=== PATIENT | female | born 1945 | race Caucasian/White ===

== ENCOUNTER → 2017-01-05 | Outpatient (CLI) | payer BC ==
[~2017-01-05] MED LIST: LISI-461 PO; LSN5 PO; PRLSR20 PO; ROSU5TAB PO
--- NOTE | 2017-01-05 15:35 | MAMMOGRAPHY REPORT ---
BILATERAL DIGITAL SCREENING MAMMOGRAM WITH CAD: 01/05/2017 CLINICAL HISTORY: Routine screening examination. TECHNIQUE: Bilateral CC and MLO views were obtained. Current study was also evaluated with a Compute r Aided Detection (CAD) system. COMPARISON: Comparison is made to exams dated: 06/04/2015 mammogram, 06/01/2014 mammogram, 03/30/2013 mammogram, 03/29/2012 mammogram, 03/24/2011 mammogram, and 03/20/2010 mammogram - [facility]. BREAST COMPOSITION: There are scattered areas of fibroglandular density in both breasts. FINDINGS: There are scattered stable benign calcifications in both breasts. No suspicious mass, arc hitectural distortion or cluster of microcalcifications is seen. IMPRESSION: ACR BI-RADS CATEGORY 2: BENIGN There is no mammographic evidence of malignancy. A 1 year screening mammogram is recommended. The pa tient will receive written notification of the results. Approximately 10% of breast cancers are not detected with mammography. A negative mammographic report should not delay biopsy if a clinically suggestive mass is present. Lesa Ozuna M.D. ay/:01/05/2017 15:06:51 [employer]: Hoa NIETO(R)(M)(BD), [facility] letter sent: Normal 1/2 BI-RADS Code: ACR BI-RADS Category 2: Benign
== END | disposition home or self-care (01) ==
LOC: C.MAMM 13:06
PROVIDERS: ATTEND Physician Assistant
DX: Z12.31 Encounter for screening mammogram for malignant neoplasm of breast (principal)

== ENCOUNTER 2024-08-01 09:44 | Observation (INO) ==
--- NOTE | 2024-07-01 15:35 | PAT Medication Instructions ---
Medication Instructions Date of Service July 01, 2024 Home Medications alendronate 70 mg tablet 70 mg PO WK atorvastatin 10 mg tablet 10 mg PO QAM calcium carbonate (Calcium 600) 600 mg PO QAM cholecalciferol (vitamin D3) 25 mcg (1,000 unit) capsule (Vitamin D3) 25 mcg PO QAM famotidine 20 mg tablet 20 mg PO HS gabapentin 300 mg capsule 300 mg PO BID lisinopril 40 mg tablet 40 mg PO QAM metoprolol tartrate 50 mg tablet 50 mg PO QAM omega-3 fatty acids 1,000 mg PO QAM omeprazole 20 mg capsule,delayed release 20 mg PO QAM sertraline 100 mg tablet 100 mg PO HS MEDICATION INSTRUCTIONS: Continue as directed alendronate 70 mg tablet 70 mg PO WK STOP taking 2 weeks before surgery omega-3 fatty acids 1,000 mg PO QAM DO NOT take the morning of surgery lisinopril 40 mg tablet 40 mg PO QAM calcium carbonate (Calcium 600) 600 mg PO QAM cholecalciferol (vitamin D3) 25 mcg (1,000 unit) capsule (Vitamin D3) 25 mcg PO QAM Take morning of surgery With a small sip of water, OTHERWISE NOTHING TO EAT OR DRINK AFTER MIDNIGHT: metoprolol tartrate 50 mg tablet 50 mg PO QAM atorvastatin 10 mg tablet 10 mg PO QAM gabapentin 300 mg capsule 300 mg PO BID omeprazole 20 mg capsule,delayed release 20 mg PO QAM Take evening before surgery famotidine 20 mg tablet 20 mg PO HS sertraline 100 mg tablet 100 mg PO HS gabapentin 300 mg capsule 300 mg PO BID Other Notes If you have any questions please call us at [phone] or [phone] or [phone] or [phone]
--- NOTE | 2024-07-21 13:06 | Anesthesiology Consultation ---
Date of Service July 21, 2024 Assessment & Plan (1) Encounter for pre-operative examination: - PCP office note 07/06/24 [facility]: "...right total knee replacement...ongoing neck discomfort...small red patch left axilla for at least several weeks...no [sic] overly painful or itchy...clotrimazole 1% external cream..." Surgeon's office made aware. - Outpatient joint assessment: Patient is currently scheduled for inpatient pathway. If re-evaluated and patient/surgeon requests outpatient pathway, patient is not a candidate for outpatient joint program. Chart Review Chart Review: Acceptable Risk for Surgery and Patient seen in Pre Admission Testing Teaching & Discussion Pre-Anesthesia Teaching/Discussion Notes: Instructed NPO after midnight before surgery, except medications with 15 cc of water. Medication instructions provided according to the PAT guidelines. History Surgery Operation Date: 08/01/24 09:15 Proposed Procedures p Right Total Knee Arthroplasty - Tony Wilson, Height/Weight Height: 5 ft 1 in Weight: 80.4 kg Allergies Allergy/AdvReac Type Severity Reaction Status Date / Time iodine Allergy Mild Rash Verified 07/01/24 13:19 Medications Home Medications Medication Instructions Recorded Confirmed Last Taken alendronate 70 mg tablet 70 mg PO WK 02/27/23 07/01/24 03/17/23 atorvastatin 10 mg tablet 10 mg PO QAM 02/27/23 07/01/24 03/23/23 04:45 calcium carbonate (Calcium 600) 600 mg PO QAM 02/27/23 07/01/24 03/22/23 08:00 cholecalciferol (vitamin D3) 25 25 mcg PO QAM 02/27/23 07/01/24 03/22/23 08:00 mcg (1,000 unit) capsule (Vitamin D3) famotidine 20 mg tablet 20 mg PO HS 02/27/23 07/01/24 03/22/23 21:30 gabapentin 300 mg capsule 300 mg PO BID 02/27/23 07/01/24 03/23/23 04:45 lisinopril 40 mg tablet 40 mg PO QAM 02/27/23 07/01/24 03/22/23 08:00 metoprolol tartrate 50 mg tablet 50 mg PO QAM 02/27/23 07/01/24 03/23/23 04:45 omega-3 fatty acids 1,000 mg PO QAM 02/27/23 07/01/24 03/16/23 omeprazole 20 mg capsule,delayed 20 mg PO QAM 02/27/23 07/01/24 03/22/23 08:00 release sertraline 100 mg tablet 100 mg PO HS 02/27/23 07/01/24 03/22/23 08:00 Past Medical History Medical History (Updated 07/21/24 @ 13:12 by Marci Ureña PA-C) Depression with anxiety GERD (gastroesophageal reflux disease) controlled, stable per pt Hyperlipidemia Hypertension controlled, stable per pt Osteoarthritis Patient denies h/o stroke, seizures, heart attack, heart failure, DM, blood clots/DVTs or blood transfusions. 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 Patient denies chest pain, fever, chills, cough, wheezing, or palpitations. Physical Exam Vital Signs Vitals BP 125/76 P 66 TEMP 98.0 SP02 94% on RA RESP 19 Physical Patient resting comfortably in chair in no acute distress, alert and oriented, responding appropriately throughout visit Full cervical extension range of motion without pain TMD 3.5 finger breadths Mallampati Score 2 Dentition: intact, denies chipped or loose teeth, caps/crowns, implants or bridges Lungs: normal respiratory effort. Good air movement, clear throughout to auscultation, no adventitious breath sounds Cardiac: regular rate and rhythm, no murmurs noted Carotid arteries: negative bruit bilat Lab Results Anesthesia Preop Results Results Anesthesia Widget: PT 10.9 Seconds (9.0-12.0) 07/21/24 PTT 26 Seconds (21-31) 07/21/24 INR 1.0 (0.9-1.1) 07/21/24 Blood Type AB Positive 07/21/24 Antibody Screen NEGATIVE 07/21/24 Testing Laboratory Results 07/19/24 WBC: 6.3 H/H: 14/44 PLATELETS: 291,000 SODIUM: 142 POTASSIUM: 4.6 CHLORIDE: 104 CO2: 29 BUN: 12 CREATININE: 0.8 GLUCOSE: 92 Electrocardiogram Date: 07/21/24 NSR, rate 62 bpm Chest X-Ray Date: 07/21/24 1. No active cardiopulmonary disease. 2. No gross interval change seen when compared to prior imaging. Echocardiogram Date: 08/26/22 EF 55-59% No LV segmental wall motion abnormalities No significant valvular disease Stress Test Date: 07/14/22 Possible small area of mild reversible ischemia of the distal anterior wall Small area of mild intensity partly reversible perfusion defect of the distal to mid anterior wall and fixed defect of the apex EF 62% No significant CAD on subsequent cath Cardiac Catheterization Date: 08/26/22 Left main: no noted disease LAD: not diseased Cx: no evidence of disease RCA: no evidence of disease
[~2024-08-01 09:44] MED LIST changes: +BUPIVACAINE 0.5 % 5 MG/1 ML PF 10ML VIAL ONE; +DEXAMETHASONE SOD INJ 4 MG/ML VIAL ONE; +GLYCOPYRROLATE 0.2 MG/ML VIAL ONE; +LIDOCAINE 2% 2 ML VIAL/AMP(20MG/ML) INFIL ONE; -LISI-461 PO; -LSN5 PO; +MIDAZOLAM HCL 1 MG/ML 2ML VIAL ONE; +ONDANSETRON INJ 2 MG/ML 2 ML VIAL ONE; -PRLSR20 PO; +PROPOFOL IV EMULSION 10 MG/ML 20 ML VIAL IV ONE; +ROPIVACAINE 0.5% 5 MG/ML 30 ML VIAL ONE; -ROSU5TAB PO; +fentaNYL citrate PF 100 MCG/2 ML VIAL ONE
[2024-08-01] MEDS: ACETAMINOPHEN 500 MG TAB PO SCH (10:28)
[2024-08-01] MEDS: dexAMETHasone**PF** 10 MG/ML VIAL IV SCH (10:28)
[2024-08-01] MEDS: GABAPENTIN 300 MG CAP PO SCH ×2 (10:28→20:31)
[2024-08-01] MEDS: FAMOTIDINE 20 MG TAB PO SCH ×2 (10:28→20:34)
[2024-08-01] MEDS: LR 500ML BOLUS, THEN 15ML/HR IV SCH (10:29)
[2024-08-01] MEDS ORDERED: PROMETHAZINE HCL 6.25 MG in SODIUM CHLORIDE 0.9% 50 ML IV PRN (11:23)
[2024-08-01] MEDS ORDERED: HYDROmorphone INJ 1 MG/ML SYRINGE IV PRN (11:23)
[2024-08-01] MEDS ORDERED: ePHEDrine sulfate 50 MG/ML AMP IV PRN (11:23)
[2024-08-01] MEDS ORDERED: ATROPINE SULFATE 0.1 MG/ML 10ML SYR IV PRN (11:23)
--- NOTE | 2024-08-01 11:31 | History & Physical Bridge Note ---
Date of Service August 01, 2024 History & Physical Bridge Note I have examined the patient, reviewed the History & Physical and in the interval since the performance of the History & Physical I have noted the following changes of clinical significance: no changes noted
[2024-08-01] MEDS: TRANEXAMIC ACID 1,000 MG **IV Pre-op IV SCH (12:14)
[2024-08-01] MEDS: LR 60ML/HR IV SCH (12:30)
[2024-08-01] MEDS: ceFAZolin 2000MG 2,000 MG/15 ML SYR IV SCH ×2 (12:32→20:30)
[2024-08-01] MEDS: ORTHO JOINT ANESTHETIC ONE (13:06)
[2024-08-01] MEDS: ROPIV 0.5% 246mg, Ketorolac 30mg, EPINEPHrine 0.5mg in NSS INFIL SCH (13:06)
[2024-08-01] MEDS: TRANEXAMIC ACID 1,000 MG **IV Intra-op IV SCH (13:36)
--- NOTE | 2024-08-01 13:38 | Operative Report ---
PG Post Operative Report Pre & Post Diagnosis Operation Date: 08/01/24 12:00 Pre-Op Diagnosis: Right Knee Arthritis Post-Op Diagnosis: Right Knee Arthritis I identified the patient and participated in the time-out.: Yes Procedure Operation Date: 08/01/24 12:00 Actual Procedures p Right Total Knee Arthroplasty(Right) - Tony Wilson DO Surgeon Tony Wilson DO Treatment Counselor Nasir Alvarez PA-C Estimated Blood Loss 50 Findings Consistent with Post-Op Diagnosis Specimens Right femoral and tibial bone Description of Procedure Implants used: I used a Darrell Persona total knee arthroplasty system with a size 5 narrow CR femur, D tibia, 28 oval patella, and a size 16 medial congruent polyethylene bearing. All components were cemented in place with Biomet cement. Sachi arrived [facility] for the above procedure. She was seen in the preoperative holding area and the operative extremity was identified and signed. She was given a preoperative antibiotic, TXA, a spinal anesthetic and an adductor nerve block. She was taken back to the operating room and laid on the table in supine position. She was given basic sedation. The operative knee was then prepped and draped in sterile fashion. A timeout was done, and the patient and the operative extremity was properly identified. A midline incision was made directly over the patella. Dissection was taken down to the extensor mechanism. A medial parapatellar arthrotomy was used. The medial retinaculum was released and the fat pad was mostly excised. The knee was flexed and the ACL, PCL, and meniscus were removed. A drill was sent down the center of the femoral canal followed by an intramedullary flaco. Off that flaco a distal femoral cutting block was placed. 9 mm was resected off the distal femur at 5 of valgus. A posterior referencing AP sizing guide was then placed on the distal femur. The femur measured to be a size 5. 2 drill holes were placed in 3 of external rotation. A 4-in-1 cutting block was then impacted into place. Anterior, posterior, and chamfer cuts were then made. The proximal tibia was then exposed. An external tibial alignment guide was placed. A tibial cut guide was then anchored in place and the proximal tibia was then resected. The posterior aspect of the knee was then opened up and any additional meniscus fragments and osteophytes were removed. The tibia measured to be a size D. The tibial plate was then placed in the appropriate rotation and the tibia was drilled and punched. Trial components were then placed. I used a size 16 medial congruent polyethylene insert. The knee was brought through a full range of motion and felt to be stable. The peg holes for the femoral component were then drilled. The patella was then everted and 9 mm was resected off the posterior aspect of the patella. The patella measured to be a size 28 oval. 3 peg holes were then drilled. A trial patella was placed. The knee was once again brought through a full range of motion and felt to be stable. Trial components were then removed. The surrounding soft tissues were injected with 100 cc of an orthopedic pain control cocktail. All components were then cemented into place with Biomet cement. The final polyethylene insert was then snapped into place. Once cement was dry the tourniquet was deflated. Hemostasis was obtained. A dilute betadyne lavage was then done for 3 minutes. The joint was then irrigated with normal saline solution. The medial parapatellar arthrotomy was then closed with #1 Vicryl suture. The skin was closed with 2-0 Vicryl, 3-0V lock suture, and jesse. A soft compressive dressing was placed. She was then transferred to a hospital bed and taken to the postanesthesia care unit in stable condition. She tolerated the procedure well. Nasir Alvarez PA-C, was present for the entire procedure. He was critical for patient positioning, prepping, draping, retraction exposure, wound closure and application of sterile dressing. I attest to the content of the Intraoperative Record and any orders documented therein. Any exceptions are noted below.
--- NOTE | 2024-08-01 14:35 | XRay Report ---
XR knee RT 1 or 2V routine CLINICAL HISTORY: Surgical Post Op COMPARISON: None FINDINGS: Right knee prosthesis shows no hardware complication. There is expected soft tissue gas. S kin jesse are present. IMPRESSION: Unremarkable postoperative exam. ACT 112: Negative or not required by law. Electronically signed by: Sanchez Roach M.D. 08/01/2024 2:33 PM
--- NOTE | 2024-08-01 15:06 | Anesthesiology Progress Note ---
Date of Service August 01, 2024 Anesthesia Post Procedure Vital Signs Vital Signs: Temp Pulse Pulse Resp BP Pulse Ox O2 Del Method 08/01/24 15:00 80 16 148/69 H 92 Room Air 08/01/24 14:45 76 14 149/69 H 95 Room Air 08/01/24 14:35 36 C L 88 18 150/73 H 95 Room Air 08/01/24 14:25 83 16 148/73 H 95 Nasal Cannula 08/01/24 14:15 89 18 96/71 L 100 Oxymask 08/01/24 14:05 36.2 C L 91 H 12 141/67 H 97 Oxymask 08/01/24 10:05 36.5 C 75 18 179/99 H 98 Room Air O2 Flow Rate 08/01/24 15:00 08/01/24 14:45 08/01/24 14:35 08/01/24 14:25 3 08/01/24 14:15 4 08/01/24 14:05 6 08/01/24 10:05 Transfer of Care Handoff Completed per policy Notes Mental Status: alert / awake / arousable and participated in evaluation Nausea / Vomiting: adequately controlled Pain: adequately controlled Airway Patency, RR, SpO2: stable & adequate BP & HR: stable & adequate Hydration State: stable & adequate Anesthetic Complications: no major complications apparent and Pt Satisfied with anesthetic care
[2024-08-01] MEDS ORDERED: METOCLOPRAMIDE HCL INJ 5 MG/ML 2 ML VIAL IV PRN (16:42)
[2024-08-01] MEDS ORDERED: oxyCODONE HCL IR 5 MG TAB (IMMEDIATE RELEASE) PO PRN (16:42)
[2024-08-01] MEDS ORDERED: NALOXONE HCL 0.4 MG/1 ML VIAL/CARP IV PRN (16:42)
[2024-08-01] MEDS ORDERED: bisacodyL 10 MG SUPP PR PRN (16:42)
[2024-08-01] MEDS ORDERED: HYDROmorphone INJ 0.5 MG/0.5 ML SYR IV PRN (16:42)
[2024-08-01] MEDS ORDERED: ONDANSETRON INJ 2 MG/ML 2 ML VIAL IV PRN (16:42)
[2024-08-01] MEDS ORDERED: MAGNESIUM HYDROXIDE SUSP 30 ML UDC PO PRN (16:42)
[2024-08-01] MEDS: KETOROLAC TROMETHAMINE 15 MG/ML VIAL IV SCH (17:19)
[2024-08-01] MEDS: ASPIRIN 81 MG ECTAB PO SCH (20:31)
[2024-08-01] MEDS: SERTRALINE HCL 100 MG TABLET PO SCH (20:32)
[2024-08-01] MEDS: DOCUSATE SODIUM 100 MG CAP PO SCH (20:34)
[2024-08-01] MEDS: SENNA 8.6 MG TAB PO SCH (20:34)
[2024-08-01] MEDS: ACETAMINOPHEN 500 MG TAB PO PRN (22:29)
[2024-08-02] MEDS: ALENDRONATE SODIUM 70 MG TAB PO SCH (05:56)
[2024-08-02 07:25] VITALS: BP 145/77; PULSE 76; RESP 20; TEMP 98.2; O2SAT 95
[2024-08-02] MEDS: MULTIVITAMIN TAB PO SCH (07:45)
[2024-08-02] MEDS: METOPROLOL TARTRATE 50 MG TAB PO SCH (07:45)
[2024-08-02] MEDS: PANTOprazole 40 MG TAB PO SCH (07:45)
[2024-08-02] MEDS: lisinopril 40 MG TAB PO SCH (07:45)
[2024-08-02] MEDS: dexAMETHasone 4 MG TAB PO SCH (07:46)
[2024-08-02] MEDS: ATORVASTATIN 10 MG TAB PO SCH (07:46)
--- NOTE | 2024-08-02 09:10 | Orthopedic Progress Note ---
Date of Service August 02, 2024 Assessment & Plan (1) Status post right knee replacement: (2) Aftercare following right knee joint replacement surgery: Plan 79-year-old woman POD# 1 s/p right total knee replacement, doing well overall. Pain is well-controlled. Medically stable. Postop x-rays well-appearing. She is neurologically intact. Plan: 1. DVT prophylaxis w/ TEDs, SCDs, ASA 81 mg BID. 2. PT/OT as tolerated. WBAT on the R LE. Encourage heel slides, SLR, full knee extension w/ quad sets. 3. Pain control doing well with current pain regimen; has Rx for outpatient pain control. 4. Dressing change by nursing after PT/OT, prior to discharge. 5. Disposition - plan to D/C home w/ home health PT later today once cleared by PT/OT. 6. F/u 2 weeks post-op w/ orthopedics (Dr. Wilson's team), or as previously scheduled, for first post-op visit. Subjective Patient is POD# 1 s/p right total knee arthroplasty by Dr. Wilson on 08/01/2024. Patient says her pain is relatively well-controlled this morning. Denies CP, SOB, N/V, or LE paresthesia. She has home health care PT arranged to come to the house for therapy for 2 weeks, then will transition to [facility] near her house after that. Patient says that she will be ready to go home today. Review of Systems All systems reviewed & are unremarkable except as noted in HPI & below. Physical Exam GENERAL: AA&Ox3, NAD. Pleasant, affect is calm. Sitting upright in bed and appears comfortable. RESPIRATORY: Normal respiratory effort with no signs of distress. CHEST/AXILLA: Chest movement symmetrical. No deformities noted. CARDIOVASCULAR: No edema noted. SKIN: [place], warm and dry. MS/EXTREMITY: Knee dressing & TRINI wrap c/d/i. SIRENA hose donned to contralateral LE. + ankle dorsi/plantarflexion. NVI distally. Calf soft/NT. PT/DP pulses intact, 2+. Able to SLR without assistance. Results & Data Results & Data Laboratory Results . Diagnostic Findings . Knee X-Ray 08/01/24 13:41 XR knee RT 1 or 2V routine CLINICAL HISTORY: Surgical Post Op COMPARISON: None FINDINGS: Right knee prosthesis shows no hardware complication. There is expected soft tissue gas. Skin jesse are present. IMPRESSION: Unremarkable postoperative exam. ACT 112: Negative or not required by law. Electronically signed by: Sanchez Roach M.D. 08/01/2024 2:33 PM PG Care Time/CCT Total # of Minutes Spent Total Time Spent with Patient: Total time spent is greater than 50% in coordination of care (as documented) at patient's floor/unit and/or counseling patient: [place] [address] Post Operative Follow-Up Patient Type Established Medical Decision Making Straight Forward Diagnoses Status post right knee replacement Z96.651 Aftercare following right knee joint replacement surgery Z47.1; Z96.651
--- NOTE | 2024-08-02 15:22 | Discharge Summary ---
Date of Service August 02, 2024 Admission HPI (Per Admitting) Jennifer is a pleasant 79-year-old female who has been dealing with chronic increasing right knee pain. X-rays and clinical exam have been diagnostic for advanced arthritis of the right knee. She has had multiple injections. Unfortunately, the injections are no longer helping. She presents to the office today for evaluation. We discussed diagnosis and treatment options again in the office today. She would like to proceed with a right total knee arthroplasty. I went over her medical history with her in detail. She is not a diabetic. She is not on any anticoagulants. She has no history of blood clots. She has no metal allergies. After reviewing her medical history with her in detail, I feel it is safe to proceed with surgery. She understands the risks, benefits, and alternatives of this procedure. I will see her back in the office 2 weeks postoperatively. Admission Exam (Per Admitting) Appearance:This is a well-developed, well-nourished female in no apparent distress.Musculoskeletal:Physical exam of the right knee shows a varus deformity. Tenderness to palpation over the distal medial femoral condyle and over the medial joint line. Principal Diagnosis Same as "Discharge Diagnosis" noted below under Discharge Instructions. Discharge Exam GENERAL: AA&Ox3, NAD. Pleasant, affect is calm. Sitting upright in bed and appears comfortable. RESPIRATORY: Normal respiratory effort with no signs of distress. CHEST/AXILLA: Chest movement symmetrical. No deformities noted. CARDIOVASCULAR: No edema noted. SKIN: [place], warm and dry. MS/EXTREMITY: Knee dressing & TRINI wrap c/d/i. SIRENA hose donned to contralateral LE. + ankle dorsi/plantarflexion. NVI distally. Calf soft/NT. PT/DP pulses intact, 2+. Able to SLR without assistance. Discharge Data Procedures Performed Operation Date: 08/01/24 12:00 Actual Procedures p Right Total Knee Arthroplasty(Right) - Tony Wilson DO Ordered Studies 08/01/24 05:00 US - OR guided needle placemen Routine Hospital Course (1) Status post right knee replacement: (2) Aftercare following right knee joint replacement surgery: Plan On August 01, 2024 Sachi arrived at [facility] operating room and underwent a right total knee replacement without complications. Patient had an adductor canal block and spinal anesthetic for the procedure. Postoperatively, patient was transferred to the general orthopedic floor in stable condition and eventually started onto aspirin 81 mg twice daily for DVT prophylaxis as appropriate. Patient's hospital course was uneventful. On postoperative day #1, patient's vital signs were stable and pain was well- controlled. Patient was able to participate well with physical therapy, safely performing the necessary ambulation and range of motion exercises and properly demonstrating ADL tasks. Patient was then discharged home in stable condition, with home health care services to begin. Patient will follow-up with orthopedics in 2 to 3 weeks for postoperative care. PG Care Time/CCT Total # of Minutes Spent Total Time Spent with Patient: Total time spent is greater than 50% in coordination of care (as documented) at patient's floor/unit and/or counseling patient: Discharge Plan Discharge Items Patient Disposition: Home - Home Health Services Reason For Visit: Right Knee Arthritis Discharge Diagnosis: Right knee replacement Activity: Per Instructions section Non-emergency contact: Surgeon Call non-emergency contact if: your pain is worsening, your temperature is above 101, your wound has increased redness and your wound has increased drainage Follow-up/Referrals: Segundo White PA-C [Physician [employer] Attendant] - (08/17/24 @ 09:30) Elio Patrick PA-C [Primary Care Provider] - Diet: Regular Addtl Attending Provider Instructions: Activity and Therapy Recommendations: * If you are using [facility] then therapy will be provided at your home until they feel you have accomplished all of your goals. * If you are using [facility] then Physical Therapy will be provided until they feel you are ready to start Outpatient Physical Therapy. * If you are not using home therapy then Outpatient Physical Therapy should start about 3-5 days from your day of surgery. Therapy will last about 6-10 weeks * It is important not to put a pillow under your knee when you are relaxing or sleeping. It is just as important to make sure you are getting your knee perfectly straight as it is to regain your knee bend. * You were shown a series of exercises in the hospital. Do these exercises three times each day including the exercises you were shown in physical therapy. * Get up and walk several times each day. For the first four weeks, try not to stand or walk for more than one hour at a time. If you do stand or walk for more than one hour, you will not hurt anything, but your leg will likely swell. * As you feel comfortable, you may change from the walker or crutches to a cane and then to independent walking. Medications: * Narcotic You will likely be sent home from the hospital with a prescription for the narcotic pain medication that worked best throughout your stay. * Cefadroxil -take the antibiotic twice a day for 10 days to help prevent infection. * Aspirin Most patients will be required to take Aspirin 81mg twice a day for 6 weeks after surgery. This is obtained [id number] and a prescription is not necessary. * Other medications may be prescribed for specific circumstances. If you have any questions, please call the office at . * Resume previous home medications unless otherwise instructed TEDs/Elastic Stockings: The white elastic stockings help limit swelling and prevent blood clots from forming in your legs.~ The more you wear them, the more they work. Wear them for 2 weeks. Dressing Care: The dressing can be changed after physical therapy on postop day #1. Daily dry dressing changes for a few days, especially if the incision is still draining some. If the incision is not draining then you may leave the jesse open to air. If there is a little bit of drainage or if the jesse are getting stuck on your clothing then cover the incision with a dry dressing. The jesse will be removed at your 2 week follow-up appointment. Showering: You may shower 5 days from the day of surgery as long as the incision is no longer draining. You may shower with the jesse exposed. Let soapy water run over the jesse and pat them dry. Do not scrub or soak the incision. Diet: You may resume your previous diet. Things To Watch For: * Drainage from the incision site that occurs more than one week after your surgery. * Increased redness at the incision site. * Fever above 102 degrees Fahrenheit. * Unusual chest pain or shortness of breath. * Call [facility] at with any of the above problems Follow-Up Visit: Follow-up with Dr. Wilson's office 2-3 weeks after your day of surgery. We will remove your jesse and answer any questions. If you have any additional questions or concerns, Dr Wilson is usually in the office at the same time and will be available An appointment was probably scheduled when you signed-up for surgery in the office. If you have any questions call Office Instructions: More detailed instructions as well as Frequently Asked Questions were provided in a folder by our office when you signed-up for surgery. Please review these instructions when you get home. If you have any further questions or concerns, please feel free to call the office at [phone] Pending Studies at Discharge: No Stand-Alone Forms: My [facility], Smoking Cessation Medications and DC Order Prescriptions: New aspirin [Adult Aspirin Regimen] 81 mg tablet,delayed release (DR/EC) 81 mg PO BID Qty: 84 0RF cefadroxil 500 mg capsule 500 mg PO BID 10 Days Qty: 20 0RF oxycodone 5 mg tablet 5 mg PO Q6H PRN (Reason: pain) Qty: 30 0RF Continued atorvastatin 10 mg Tablet 10 mg PO QAM alendronate 70 mg Tablet 70 mg PO WK Rx Instructions: Tuesdays sertraline 100 mg Tablet 100 mg PO HS calcium carbonate [Calcium 600] 600 mg calcium (1,500 mg) Tablet 600 mg PO QAM famotidine 20 mg Tablet 20 mg PO HS metoprolol tartrate 50 mg Tablet 50 mg PO QAM gabapentin 300 mg Capsule 300 mg PO BID omeprazole 20 mg Capsule,Delayed Release(Dr/Ec) 20 mg PO QAM lisinopril 40 mg Tablet 40 mg PO QAM cholecalciferol (vitamin D3) [Vitamin D3] 25 mcg (1,000 unit) Capsule 25 mcg PO QAM omega-3 fatty acids Capsule 1,000 mg PO QAM Admission Data Admit Date/Time: 08/01/24 13:41 Attending Provider: Tony Wilson Admit Provider: Tony Wilson Primary Care Provider: Elio Patrick Other Interventions: Discharge Summary Assessment (RN) Last Done: 08/02/24 11:01
== END 2024-08-02 11:53 | disposition home health service (06) ==
LOC: ASU 09:44 → 3N 09:44

== ENCOUNTER 2024-08-02 20:07 | Observation (INO) ==
--- NOTE | 2024-08-02 20:31 | Emergency Department Note ---
Impression & Plan Left shoulder pain, Injury of left shoulder, Fracture of acromial process ED Provider Note CHIEF COMPLAINT: Shoulder injury/dislocation HISTORY OF PRESENTING ILLNESS: The patient is a 79-year-old female who presents to the emergency department via EMS from her home due to a left shoulder injury. Patient had a right knee replacement done by Dr. Wilson yesterday and was discharged home today. Patient was pulling up her compression stockings over the wound dressing when she heard and felt a pop in the left shoulder. She began to experience pain and was completely unable to move the arm. EMS reports deformity. Confirms that she had her shoulder replaced last January. Patient denies numbness, tingling, any other injury. She reports that she is in a significant amount of pain. REVIEW OF SYSTEMS: See HPI for pertinent positives and pertinent negatives. ALLERGIES: Iodine MEDICATIONS: See below PAST MEDICAL HISTORY: See below PHYSICAL EXAM: VITALS: Vitals are noted on the nurse's note and reviewed by myself. Vital signs stable. GENERAL: 79-year-old female, sitting in bed in obvious discomfort and pain, nondiaphoretic, well-developed well-nourished. SKIN: Capillary refill less than 2 seconds. HEART: Regular rate and rhythm without murmurs gallops or rubs. LUNGS: Clear to auscultation bilaterally without wheezes, rales or rhonchi. No retractions or accessory muscle use. MUSCULOSKELETAL: Left shoulder with a slight deformity. Patient is extremely tender to even light palpation of all aspects of the left shoulder. Physical exam is limited secondary to discomfort. Patient is able to wiggle her fingers. Significantly decreased strength of the left extremity due to pain. 2+ radial and ulnar pulse palpated bilaterally. NEURO: Patient was alert and oriented to person place and time. Normal sensation to light and sharp touch. No focal neurological deficits. DIFFERENTIAL DIAGNOSIS: shoulder contusion, shoulder fracture, shoulder dislocation, thoracic outlet syndrome, adhesive capsulitis, rotator cuff tear, clavicle fracture, apical pneumonia, pneumothorax, hemothorax, cardiac disease, among others. ED COURSE AND MEDICAL DECISION MAKING: HISTORY FROM INDEPENDENT HISTORIAN: The patient herself, her sister, and her daughter. MEDICATIONS GIVEN: Morphine 3 mg IV, Zofran 4 mg IV, Dilaudid 0.5 mg IV INTERPRETATION OF LABS: No labs are obtained. INTERPRETATION OF IMAGING: Imaging studies were interpreted by myself and read by radiology as per the imaging section of this note. X-ray left shoulder - Reverse left shoulder arthroplasty without dislocation or fracture. CT left shoulder - Acute nondisplaced fracture through the base of the acromion process. No dislocation. CONSULTATIONS: Orthopedic on-call provider - I presented the case to the on-call physician health care legal assistant and informed her that the patient had a shoulder replacement done in January. X-ray imaging was not read by radiology at that time but did have concern for potential dislocation. She did inform me that she did not believe that it was dislocated at this time and she can be placed in a sling and sent home with pain management. She did recommend a CT scan to further evaluate the joint to ensure that the arthroplasty remains in appropriate location without fracture or complication. Kay on-call hospitalist - Presented the patient to the hospitalist team. Informed them of her left shoulder fracture as well as recent right knee replacement. Discussed that her pain is uncontrolled with morphine and Dilaudid as well as she does not feel it is safe for her to go home to try to ambulate while using a walker with these injuries. They confirmed that they would evaluate her and admit her to medicine. ESCALATION OF CARE: Escalation of care was considered due to the patient having a right knee replacement done yesterday and now injuring her left shoulder. Patient is in a significant amount of pain. CT scan shows fracture of the left acromion. Patient still has significant pain after morphine and Dilaudid. Immediately after patient was placed in the sling she began to experience significant discomfort and was unable to ambulate with her walker. I had a long discussion with the patient regarding and not being safe to go home and she agrees that she thinks that she should be admitted for pain management and it would be safest here in the hospital. Patient was admitted. MDM SUMMARY: The patient is a 79-year-old female who presents via EMS due to a left shoulder injury while pulling up her compression stocking hearing a pop, experiencing pain, and being unable to move the left shoulder. Patient had a right knee replacement completed yesterday and was recently discharged from the hospital. Patient denies numbness, tingling, any other injury. She reports that she is in a significant amount of pain. Morphine and Zofran were given for pain management. On exam she is lying comfortably in bed but is in obvious discomfort and pain. Left shoulder with a slight deformity. Patient is extremely tender to even light palpation of all aspects of the left shoulder. Physical exam is extremely limited secondary to discomfort. Patient is able to wiggle her fingers and is neurovascularly intact. Significantly decreased strength of the left upper extremity. X-ray of the left shoulder was ordered to determine if the shoulder was dislocated and for fracture evaluation. Due to the shoulder replacement and possibility of dislocation I did reach out to on- call orthopedic provider which can be seen in detail above. X-ray shows left shoulder arthroplasty without dislocation or fracture. After discussing the case with orthopedics they recommended a CT scan. CT left shoulder was ordered showing a acute nondisplaced fracture through the base of the acromion process. The joint itself is not dislocated. All results were thoroughly reviewed with the patient. I immediately discussed with the patient that due to a left shoulder injury/fracture and a recent right knee replacement that it may be challenging for her to ambulate on her own at home. She confirms that she is currently living with her sister but that she is using a walker to maneuver the home which may be difficult due to this injury. Patient originally declined admission and Dilaudid was given for further pain management. The patient was placed in a sling and tried to navigate getting off of the bed to use walker/get into the wheelchair for discharge. Immediately upon doing so she was in a pretty significant amount of discomfort. I again discussed with the patient that it may be not safe for her to go home at this time with uncontrolled pain and risk of falling at home. Patient agrees and requests admission for pain management and a safe place to stay for the next couple of days. The patient was admitted to the [facility] team and basic labs were drawn for admission. Consultation with admission team can be seen in detail above. Patient agrees and was admitted in stable condition. DIAGNOSIS: Left shoulder pain, injury of left shoulder, fracture of acromion process The chart was completed utilizing [employer] Speech voice recognition software. Grammatical errors, random word insertions, pronoun errors, and incomplete sentences are an occasional consequence of this system due to software limitations, ambient noise, and hardware issues. Any formal questions or concerns about the content, text, or information contained within the body of this dictation should be directly addressed to the provider for clarification. TREATMENT PLAN/DISCHARGE INSTRUCTIONS: You were evaluated in the emergency department due to a left shoulder injury. All x-ray and CT images were thoroughly reviewed with you. There is a fracture noted on your left acromion process. You were placed in a sling for support of the shoulder. This should remain in place and you should not use the shoulder joint until you are evaluated by orthopedics. We did discuss that Dr. Wilson did your shoulder replacement and that you should see him for follow-up. With you having a knee replacement done yesterday we discussed that it may be hard for you to get around at home. You were offered admission for overnight pain management and monitoring in which you politely declined. Be extremely careful when you are getting in the house due to the left shoulder and right knee being compromised. You did confirm that you live on 1 floor and that someone will be with you at all times. If you get home and you feel as if you are unsafe or you cannot manage things on your own please return to the emergency department immediately. You confirmed that you have oxycodone 5 mg that was given for postop. Take this as directed. We did discuss that this may cause constipation so you were encouraged to stay very hydrated and use an oral laxative if needed. You may ice the left shoulder to help with swelling and pain. - Regular strength (325mg/tab) Tylenol (acetaminophen) 2 tabs every 4-6 hours as needed. Do not exceed 12 tablets in a 24 hour period. Avoid taking more than 4 grams (4000 mg) of Tylenol per day. This includes any other sources of acetaminophen you may take on a regular basis. Please return to the emergency department if the outlined treatment plan above does not seem to be working, if your pain is uncontrolled, if you develop fevers, or you feel it is unsafe for you at home. If anything concerns you please return. It was a pleasure to be part of your care team. Take care. Past Med/Surg History Problem List (Updated 08/03/24 @ 08:52 by Sophia Contreras PA-C) Leukocytosis Status post total right knee replacement Primary osteoarthritis of right knee Fracture of acromial process (Acute) Injury of left shoulder (Acute) Left shoulder pain (Acute) Aftercare following right knee joint replacement surgery Status post right knee replacement (~07/2024) Encounter for pre-operative examination Right knee pain (Acute) Hernia (Chronic) HTN (hypertension) (Chronic) [facility] Medical History Osteoarthritis Hypertension Depression with anxiety Hyperlipidemia GERD (gastroesophageal reflux disease) Surgical History 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) History of hysterectomy Hx of cardiac catheterization History of esophagogastroduodenoscopy (EGD) Hx of colonoscopy History of shoulder surgery History of Rika fundoplication Family History Other No family history of adverse response to anesthesia Social History Smoking Status: Never smoker Second Hand Exposure: No; Do You Dip or Chew Tobacco: No; Tobacco Cessation Education Requested by Patient: No Hx Alcohol Use: No Hx Substance Use: No Preferred Language: Nigerian Communication Ability: Effective Field Investigator Required: No Beliefs That Will Affect Care: None Current Living Situation: Family Current Living Situation Comment: lives w/ sister Other Information That Helps Us Care for You: No Feels Safe at Home: Yes Safety Concerns: Feels Safe At This Time Assistive Devices: Cane Allergies Allergies Allergy/AdvReac Type Severity Reaction Status Date / Time iodine Allergy Mild Rash Verified 08/03/24 00:19 Home Meds Home Medications Medication Instructions Recorded Confirmed alendronate 70 mg tablet 70 mg PO WK 02/27/23 08/03/24 atorvastatin 10 mg tablet 10 mg PO QAM 02/27/23 08/03/24 calcium carbonate (Calcium 600) 600 mg PO QAM 02/27/23 08/03/24 cholecalciferol (vitamin D3) 25 25 mcg PO QAM 02/27/23 08/03/24 mcg (1,000 unit) capsule (Vitamin D3) famotidine 20 mg tablet 20 mg PO HS 02/27/23 08/03/24 gabapentin 300 mg capsule 300 mg PO BID 02/27/23 08/03/24 lisinopril 40 mg tablet 40 mg PO QAM 02/27/23 08/03/24 omeprazole 20 mg capsule,delayed 20 mg PO QAM 02/27/23 08/03/24 release sertraline 100 mg tablet 100 mg PO HS 02/27/23 08/03/24 metoprolol succinate 50 mg 50 mg PO DAILY 08/03/24 08/03/24 tablet,extended release 24 hr omega-3 fatty acids 1,000 mg 1,000 mg PO QAM 08/03/24 08/03/24 capsule Previous Rx's Medication Instructions Recorded aspirin 81 mg tablet,delayed 81 mg PO BID #84 tabs 08/01/24 release (Adult Aspirin Regimen) cefadroxil 500 mg capsule 500 mg PO BID 10 days #20 caps 08/01/24 oxycodone 5 mg tablet 5 mg PO Q6H PRN pain #30 tabs 08/01/24 Results & Data (ED) Vital Signs Vital Signs - 24 hr 08/03/24 00:00 08/03/24 00:33 Blood Pressure 147/80 H Blood Pressure Mean 102 Oxygen Delivery Method Room Air Laboratory Data 08/03/24 00:15 08/03/24 00:15 Lab Results 08/03/24 Range/Units 00:15 WBC 12.84 H (4.8-10.8) K/ul RBC 4.30 (4.20-5.40) M/uL Hgb 12.9 (12.0-16.0) g/dl Hct 38.3 (37.0-47.0) % MCV 89.1 (80.0-100.0) fL MCH 30.0 (25.0-34.0) pg MCHC 33.7 (32.0-36.0) g/dL RDW Std Deviation 42.5 (36.4-46.3) fL RDW Coeff of John 13.0 (11.5-14.5) % Plt Count 275 (130-400) K/uL MPV 9.0 L (9.4-12.4) fL Immature Gran % (Auto) 0.5 % Neut % (Auto) 75.3 % Lymph % (Auto) 16.5 % Chester % (Auto) 7.6 % Eos % (Auto) 0.0 % Baso % (Auto) 0.1 % Neut # (Auto) 9.66 H (1.40-6.50) K/uL Lymph # (Auto) 2.12 (1.20-3.40) K/uL Chester # (Auto) 0.98 H (0.11-0.59) K/uL Eos # (Auto) 0.00 (0.00-0.50) K/uL Baso # (Auto) 0.01 (0.00-0.20) K/uL Immature Gran # (Auto) 0.07 (0.01-0.20) K/uL Sodium 139 (136-145) mmol/L Potassium 4.1 (3.5-5.1) mmol/L Chloride 104 (98-107) mmol/L Carbon Dioxide 31 (21-32) mmol/L Anion Gap 4 (3-11) BUN 15 (6-23) mg/dl Creatinine 0.84 (0.6-1.2) mg/dl Est Cr Clr Drug Dosing 58.9 ml/min eGFR 71.08 BUN/Creatinine Ratio 17.9 (10-20) Glucose 124 H (70-99(Fasting)) mg/dl Estimat Average Glucose 117 mg/dl Hemoglobin A1c 5.7 H (4.5-5.6) % Calcium 9.2 (8.6-10.3) mg/dl Total Bilirubin 0.5 (0.2-1.0) mg/dl AST 18 (13-39) U/L ALT 8 (7-52) U/L Alkaline Phosphatase 48 (34-104) U/L Total Protein 6.9 (6.0-8.3) gm/dl Albumin 4.0 (3.4-5.0) gm/dl Globulin 2.9 (2.5-4.0) gm/dl Albumin/Globulin Ratio 1.4 (0.9-2) Administered Medications Discontinued Medications Acetaminophen (Acetaminophen 325 Mg Tab) 650 mg PO QID PRN PRN Reason: pain/fever Stop: 09/02/24 00:32 Last Admin: 08/03/24 02:50 Dose: 650 mg Documented By: PALLAVI Aspirin (Aspirin 81 Mg Ectab) 81 mg PO BID [facility] Stop: 09/02/24 08:59 Last Admin: 08/03/24 07:27 Dose: 81 mg Documented By: BRANNON Atorvastatin Calcium (Atorvastatin 10 Mg Tab) 10 mg PO [facility] Stop: 09/02/24 08:59 Last Admin: 08/03/24 07:27 Dose: 10 mg Documented By: BRANNON Calcium Carbonate (Calcium Carbonate 1250mg Tab) 1 tab PO [facility] Stop: 09/02/24 08:59 Last Admin: 08/03/24 07:27 Dose: 1 tab Documented By: BRANNON Cefadroxil (Cefadroxil 500 Mg Cap) 500 mg PO BID [facility] Stop: 08/10/24 08:59 Last Admin: 08/03/24 07:27 Dose: 500 mg Documented By: BRANNON Gabapentin (Gabapentin 300 Mg Cap) 300 mg PO BID [facility] Stop: 09/02/24 08:59 Last Admin: 08/03/24 07:27 Dose: 300 mg Documented By: BRANNON Hydromorphone HCl (Hydromorphone Inj 0.5 Mg/0.5 Ml Syr) 0.5 mg IV NOW STA Stop: 08/02/24 23:59 Last Admin: 08/03/24 00:19 Dose: 0.5 mg Documented By: MARIO Lisinopril (L[facility]opril 40 Mg Tab) [facility] Stop: 09/02/24 08:59 Last Admin: 08/03/24 07:28 Dose: 40 mg Documented By: BRANNON Metoprolol Succinate (Metoprolol Succ 50mg Ext Rel Tab) 50 mg PO DAILY [facility] Stop: 09/02/24 08:59 Last Admin: 08/03/24 07:28 Dose: 50 mg Documented By: BRANNON Metoprolol Tartrate (Metoprolol Tartrate 1 Mg/Ml Vial) 2.5 mg IV NOW STA Stop: 08/03/24 00:33 Last Admin: 08/03/24 00:43 Dose: Not Given Documented By: MARIO Morphine Sulfate (Morphine Sulfate 4 Mg/Ml 1 Ml Carp\Vial) 3 mg IV NOW STA Stop: 08/02/24 20:40 Last Admin: 08/02/24 21:16 Dose: 3 mg Documented By: MARIO Ondansetron HCl (Ondansetron Inj 2 Mg/Ml 2 Ml Vial) 4 mg IV NOW STA Stop: 08/02/24 20:40 Last Admin: 08/02/24 21:16 Dose: 4 mg Documented By: MARIO Oxycodone HCl (Oxycodone Hcl Ir 5 Mg Tab (Immediate Release)) 5 mg PO Q4H PRN PRN Reason: Pain Stop: 08/17/24 00:32 Last Admin: 08/03/24 11:44 Dose: 5 mg Documented By: Admin: 08/03/24 05:59 Dose: 5 mg Documented By: PALLAVI Pantoprazole Sodium (Pantoprazole 40 Mg Tab) 40 mg PO BID [facility] Stop: 09/02/24 08:59 Last Admin: 08/03/24 07:27 Dose: 40 mg Documented By: BRANNON Senna/Docusate Sodium (Docusate Sodium/Senna 50/8.6mg Tab) 1 tab PO QAM [facility] Stop: 09/02/24 01:14 Last Admin: 08/03/24 03:43 Dose: Not Given Documented By: PALLAVI Senna/Docusate Sodium (Docusate Sodium/Senna 50/8.6mg Tab) 1 tab PO QAM [facility] Stop: 09/02/24 08:59 Last Admin: 08/03/24 09:02 Dose: 1 tab Documented By: BRANNON Vitamin D (Cholecalciferol 25 Mcg (1000 Units) Tab) 25 mcg PO QAM [facility] Stop: 09/02/24 08:59 Last Admin: 08/03/24 07:28 Dose: 25 mcg Documented By: Mariana Imaging Data Radiologist's Impression: Shoulder X-Ray 08/02/24 20:27 Exam(s): XR LEFT SHOULDER, 2+ views EXAM: XR Left Shoulder Complete, 2 or More Views CLINICAL HISTORY: Reason for exam: left shoulder injury/dislocation. TECHNIQUE: Two or more views of the left shoulder. COMPARISON: No relevant prior studies available. FINDINGS: Bones/joints: Reverse left shoulder arthroplasty without dislocation or fracture. Acromioclavicular joint osteoarthritis. Heterotopic ossification along the medial aspect of the shoulder prosthesis. Soft tissues: Unremarkable. IMPRESSION: Reverse left shoulder arthroplasty without dislocation or fracture. Electronically signed by: Lan Vinson M.D. 08/02/24 22:[address] 08/02/24 21:53 Exam(s): CT LEFT SHOULDER Without Contrast EXAM: CT Left Upper Extremity Without Intravenous Contrast, Shoulder CLINICAL HISTORY: Reason for exam: shoulder injury. TECHNIQUE: Axial computed tomography images of the left shoulder without intravenous contrast. CTDI is 8 mGy and DLP is 446.74 mGy-cm. Automated exposure control was utilized for the study. A dose lowering technique was utilized adhering to the principles of ALARA. COMPARISON: Left shoulder radiographs 08/02/24 FINDINGS: Bones/joints: Acute nondisplaced fracture through the base of the acromion process (series 3, image 22). Reverse left shoulder arthroplasty without dislocation or periprosthetic fracture. Soft tissues: Unremarkable. IMPRESSION: 1. Acute nondisplaced fracture through the base of the acromion process (series 3, image 22). 2. Reverse left shoulder arthroplasty without dislocation or periprosthetic fracture. Electronically signed by: Lan Vinson M.D. 08/02/24 22:53 PM Discharge Plan Visit Data Chief Complaint: Shoulder Dislocation Stated Complaint: L Shoulder Dislocation ED Provider: Noelle Oliver ED Midlevel Provider: Airam Garcia Discharge Problem: Left shoulder pain, Injury of left shoulder, Fracture of acromial process Patient Disposition: Admitted As Inpatient Condition: Good Discharge Instructions Interventions: ED Discharge Assessment Last Done: 08/03/24 02:21 Discharge Problem: Left shoulder pain Qualifiers: Chronicity: acute Qualified Code(s): M25.512 - Pain in left shoulder Injury of left shoulder Qualifiers: Encounter type: initial encounter Qualified Code(s): S49.92XA - Unspecified injury of left shoulder and upper arm, initial encounter Fracture of acromial process Qualifiers: Encounter type: initial encounter Fracture type: closed Fracture alignment: n ondisplaced Laterality: left Qualified Code(s): S42.125A - Nondisplaced fracture of acromial process, left shoulder, initial encounter for closed fracture
--- NOTE | 2024-08-02 21:09 | Emergency Department Note ---
ED Visit Note I was consulted by the Advanced Practice Provider, Airam Garcia PA-C. I performed a substantive portion of the visit. This includes aspects of: History: Patient is a 79-year-old female presenting with left shoulder pain. Patient reports she just had a right knee replacement yesterday and was discharged back home today. Reports that she was reaching down to try to put on a compression sock and states while she is attempting to pull up her compression stockings she felt a pop in her left shoulder. States she had immediate pain to that area. Reports that the left shoulder was replaced in January 2024. MDM: - Xray shoulder showed a nondisplaced fracture through the acromion. - Case was discussed with orthopedics. Please see their recommendations in Airam's note. Based on patient's continued pain and exam, concern for potential dislocation. - CT shoulder wo contrast showed an acute. non-displaced fracture at the base of the acromion - Patient was offered admission for pain control, but patient would like to be discharged home. - Patient was placed in a sling and instructed on return precautions. Recommended close follow-up with orthopedic surgery. She was given a to go pack of oxycodone for significant breakthrough pain.
[2024-08-02] MEDS: ONDANSETRON INJ 2 MG/ML 2 ML VIAL IV STA (21:16)
[2024-08-02] MEDS: MoRPHine SULFATE 4 MG/ML 1 ML CARP\\VIAL IV STA (21:16)
--- NOTE | 2024-08-02 22:19 | XRay Report ---
Exam(s): XR LEFT SHOULDER, 2+ views EXAM: XR Left Shoulder Complete, 2 or More Views CLINICAL HISTORY: Reason for exam: left shoulder injury/dislocation. TECHNIQUE: Two or more views of the left shoulder. COMPARISON: No relevant prior studies available. FINDINGS: Bones/joints: Reverse left shoulder arthroplasty without dislocation or fracture. Acromioclavicular joint osteoarthritis. Heterotopic ossification along the medial aspect of the shoulder prosthesis. Soft tissues: Unremarkable. IMPRESSION: Reverse left shoulder arthroplasty without dislocation or fracture. Electronically signed by: Lan Vinson M.D. 08/02/24 22:18 PM
--- NOTE | 2024-08-02 22:54 | CT Scan Report ---
Exam(s): CT LEFT SHOULDER Without Contrast EXAM: CT Left Upper Extremity Without Intravenous Contrast, Shoulder CLINICAL HISTORY: Reason for exam: shoulder injury. TECHNIQUE: Axial computed tomography images of the left shoulder without intravenous contrast. CTDI is 8 mGy and DLP is 446.74 mGy-cm. Automated exposure control was utilized for the study. A dose lowering technique was utilized adhering to the principles of ALARA. COMPARISON: Left shoulder radiographs 08/02/24 FINDINGS: Bones/joints: Acute nondisplaced fracture through the base of the acromion process (series 3, image 22). Reverse left shoulder arthroplasty without dislocation or periprosthetic fracture. Soft tissues: Unremarkable. IMPRESSION: 1. Acute nondisplaced fracture through the base of the acromion process (series 3, image 22). 2. Reverse left shoulder arthroplasty without dislocation or periprosthetic fracture. Electronically signed by: Lan Vinson M.D. 08/02/24 22:53 PM
[2024-08-03] MEDS: HYDROmorphone INJ 0.5 MG/0.5 ML SYR IV STA (00:19)
[2024-08-03 00:31] LABS: Basophils # (auto) 0.01 K/uL (0.00-0.20); Basophils % (auto) 0.1 %; Hematocrit (blood only) 38.3 % (37.0-47.0); Hemoglobin 12.9 g/dl (12.0-16.0); Immature Granulocytes # (auto) 0.07 K/uL (0.01-0.20); Immature Granulocytes % (auto) 0.5 %; Lymphocytes # (auto) 2.12 K/uL (1.20-3.40); Lymphocytes % (auto) 16.5 %; Mean Corpuscular Hgb Conc 33.7 g/dL (32.0-36.0); Mean Corpuscular Volume 89.1 fL (80.0-100.0); Monocytes # (auto) 0.98 K/uL (0.11-0.59); Monocytes % (auto) 7.6 %; Neutrophils # (auto) 9.66 K/uL (1.40-6.50); Neutrophils % (auto) 75.3 %; Platelet Count 275 K/uL (130-400); RDW Standard Deviation 42.5 fL (36.4-46.3); White Blood Count 12.84 K/ul (4.8-10.8)
[2024-08-03] MEDS ORDERED: PROMETHAZINE 6.25 MG/50.25 ML BAG IV PRN (00:33)
[2024-08-03] MEDS ORDERED: MoRPHine SULFATE 4 MG/ML 1 ML CARP\\VIAL IV PRN (00:33)
[2024-08-03] MEDS: METOPROLOL TARTRATE 1 MG/ML VIAL IV STA (00:43)
--- NOTE | 2024-08-03 00:43 | History & Physical Report ---
Date of Service August 03, 2024 Assessment & Plan (1) Fracture of acromial process: Plan: Acromial process fracture Recent right knee surgery hypertension, slightly elevated secondary to discomfort hyperlipidemia, on statin Rx prediabetes, hemoglobin A1c of 5.5 last year anxiety disorder, mild anxiety during exam Postop constipation OBS Admit to MedSurg Analgesia Orthopedics consult Re: Left acromial process fracture Update hemoglobin A1c Bowel regimen PT OT eval DVT prophylaxis. Aspirin twice daily as per postop Ortho orders, SCDs Full code Text document was generated using FSI voice recognition software. It may contain grammatical or spelling errors. Kindly contact undersigned for clarification of any documentation item in question. History of Present Illness Chief Complaint: Left shoulder pain Primary Care Provider: Elio Patrick History obtained from patient and records. Medical history significant for hypertension, hyperlipidemia, GERD, prediabetes, sacroiliitis as per records, anxiety disorder. Recent overnight confinement under Orthopedics service last August 01 to 2024 for elective right total knee arthroplasty. Unremarkable postop course prior to discharge home yesterday. Patient was trying to put on on her compression stocking at home yesterday when she heard on pop on her shoulder resulting in excruciating left shoulder pain. No chest pain, no SOB. No abdominal pain. Last BM was prior to surgery 2 days ago. Patient transported to ER by EMS. Nondisplaced fracture on left acromion process. Patient uncomfortable going home. 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 Allergies Allergy/AdvReac Type Severity Reaction Status Date / Time iodine Allergy Mild Rash Verified 08/03/24 00:19 Home Medications Medication Instructions Recorded Confirmed Type alendronate 70 mg tablet 70 mg PO WK 02/27/23 08/03/24 History atorvastatin 10 mg tablet 10 mg PO QAM 02/27/23 08/03/24 History calcium carbonate (Calcium 600) 600 mg PO QAM 02/27/23 08/03/24 History cholecalciferol (vitamin D3) 25 25 mcg PO QAM 02/27/23 08/03/24 History mcg (1,000 unit) capsule (Vitamin D3) famotidine 20 mg tablet 20 mg PO HS 02/27/23 08/03/24 History gabapentin 300 mg capsule 300 mg PO BID 02/27/23 08/03/24 History lisinopril 40 mg tablet 40 mg PO QAM 02/27/23 08/03/24 History omeprazole 20 mg capsule,delayed 20 mg PO QAM 02/27/23 08/03/24 History release sertraline 100 mg tablet 100 mg PO HS 02/27/23 08/03/24 History aspirin 81 mg tablet,delayed 81 mg PO BID #84 tabs 08/01/24 08/03/24 Rx release (Adult Aspirin Regimen) cefadroxil 500 mg capsule 500 mg PO BID 10 days #20 caps 08/01/24 08/03/24 Rx oxycodone 5 mg tablet 5 mg PO Q6H PRN pain #30 tabs 08/01/24 08/03/24 Rx metoprolol succinate 50 mg 50 mg PO DAILY 08/03/24 08/03/24 History tablet,extended release 24 hr omega-3 fatty acids 1,000 mg 1,000 mg PO QAM 08/03/24 08/03/24 History capsule Past Med/Surg History Problem List (Updated 08/02/24 @ 23:43 by Airam Garcia PA-C) Fracture of acromial process (Acute) Injury of left shoulder (Acute) Left shoulder pain (Acute) Aftercare following right knee joint replacement surgery Status post right knee replacement (~07/2024) Encounter for pre-operative examination Right knee pain (Acute) Hernia (Chronic) HTN (hypertension) (Chronic) Follows with S cardio (Dr Hardin [facility]) Medical History Osteoarthritis Hypertension Depression with anxiety Hyperlipidemia GERD (gastroesophageal reflux disease) Surgical History 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) History of hysterectomy Hx of cardiac catheterization History of esophagogastroduodenoscopy (EGD) Hx of colonoscopy History of shoulder surgery History of Rika fundoplication Family History Other No family history of adverse response to anesthesia Social History Smoking Status: Never smoker Second Hand Exposure: No; Do You Dip or Chew Tobacco: No; Tobacco Cessation Education Requested by Patient: No Hx Alcohol Use: No Hx Substance Use: No Preferred Language: Croatian Communication Ability: Effective Rail Walker Required: No Beliefs That Will Affect Care: None Current Living Situation: Family Current Living Situation Comment: lives w/ sister Other Information That Helps Us Care for You: No Feels Safe at Home: Yes Safety Concerns: Feels Safe At This Time Assistive Devices: Cane Review of Systems Review of Systems: As per HPI, all other systems reviewed and negative Physical Exam Physical Exam: GENERAL: Slightly uncomfortable, pleasant, obese, no respiratory distress SKIN: Normal color, warm HEENT: Bespectacled, [place] palpebral conjunctivae, no ptosis, moist buccal mucosa NECK : Supple, no tenderness CHEST : CTA, no tenderness HEART : RRR, no obvious murmurs ABDOMEN: Some distention, nontender EXTREMITIES : LUE sling, minimal RLE swelling with right knee tenderness, palpable pulses, no other conspicuous deformities noted NEUROLOGIC : Coherent, no facial asymmetry, no other gross focality Results & Data Results & Data Vital Signs (Past 12 Hours) Vital Signs Temp Pulse Pulse Resp BP BP Pulse Ox 08/03/24 00:33 147/80 H 08/03/24 00:00 08/02/24 23:17 36.9 C 75 18 161/89 H 96 08/02/24 21:55 69 16 98 08/02/24 19:55 37.2 C 75 16 139/92 98 O2 Del Method 08/03/24 00:33 08/03/24 00:00 Room Air 08/02/24 23:17 Room Air 08/02/24 21:55 Room Air 08/02/24 19:55 Room Air Laboratory Results Laboratory Results WBC 12.84 K/ul (4.8-10.8) H 08/03/24 00:15 RBC 4.30 M/uL (4.20-5.40) 08/03/24 00:15 Hgb 12.9 g/dl (12.0-16.0) 08/03/24 00:15 Hct 38.3 % (37.0-47.0) 08/03/24 00:15 MCV 89.1 fL (80.0-100.0) 08/03/24 00:15 MCH 30.0 pg (25.0-34.0) 08/03/24 00:15 MCHC 33.7 g/dL (32.0-36.0) 08/03/24 00:15 RDW Std Deviation 42.5 fL (36.4-46.3) 08/03/24 00:15 RDW Coeff of John 13.0 % (11.5-14.5) 08/03/24 00:15 Plt Count 275 K/uL (130-400) 08/03/24 00:15 MPV 9.0 fL (9.4-12.4) L 08/03/24 00:15 Immature Gran % (Auto) 0.5 % 08/03/24 00:15 Neut % (Auto) 75.3 % 08/03/24 00:15 Lymph % (Auto) 16.5 % 08/03/24 00:15 [place] % (Auto) 7.6 % 08/03/24 00:15 Eos % (Auto) 0.0 % 08/03/24 00:15 Baso % (Auto) 0.1 % 08/03/24 00:15 Neut # (Auto) 9.66 K/uL (1.40-6.50) H 08/03/24 00:15 Lymph # (Auto) 2.12 K/uL (1.20-3.40) 08/03/24 00:15 [place] # (Auto) 0.98 K/uL (0.11-0.59) H 08/03/24 00:15 Eos # (Auto) 0.00 K/uL (0.00-0.50) 08/03/24 00:15 Baso # (Auto) 0.01 K/uL (0.00-0.20) 08/03/24 00:15 Immature Gran # (Auto) 0.07 K/uL (0.01-0.20) 08/03/24 00:15 Impressions Shoulder X-Ray 08/02/24 20:27 Exam(s): XR LEFT SHOULDER, 2+ views EXAM: XR Left Shoulder Complete, 2 or More Views CLINICAL HISTORY: Reason for exam: left shoulder injury/dislocation. TECHNIQUE: Two or more views of the left shoulder. COMPARISON: No relevant prior studies available. FINDINGS: Bones/joints: Reverse left shoulder arthroplasty without dislocation or fracture. Acromioclavicular joint osteoarthritis. Heterotopic ossification along the medial aspect of the shoulder prosthesis. Soft tissues: Unremarkable. IMPRESSION: Reverse left shoulder arthroplasty without dislocation or fracture. Electronically signed by: Lan Vinson M.D. 08/02/24 22:[address] 08/02/24 21:53 Exam(s): CT LEFT SHOULDER Without Contrast EXAM: CT Left Upper Extremity Without Intravenous Contrast, Shoulder CLINICAL HISTORY: Reason for exam: shoulder injury. TECHNIQUE: Axial computed tomography images of the left shoulder without intravenous contrast. CTDI is 8 mGy and DLP is 446.74 mGy-cm. Automated exposure control was utilized for the study. A dose lowering technique was utilized adhering to the principles of ALARA. COMPARISON: Left shoulder radiographs 08/02/24 FINDINGS: Bones/joints: Acute nondisplaced fracture through the base of the acromion process (series 3, image 22). Reverse left shoulder arthroplasty without dislocation or periprosthetic fracture. Soft tissues: Unremarkable. IMPRESSION: 1. Acute nondisplaced fracture through the base of the acromion process (series 3, image 22). 2. Reverse left shoulder arthroplasty without dislocation or periprosthetic fracture. Electronically signed by: Lan Vinson M.D. 08/02/24 22:53 PM (1) Fracture of acromial process Encounter type: initial encounter Fracture alignment: nondisplaced Fracture type: closed Laterality: left Qualified Code(s): S42.125A - Nondisplaced fracture of acromial process, left shoulder, initial encounter for closed fracture
[2024-08-03 00:45] LABS: Albumin Globulin Ratio 1.4 (0.9-2); BUN Creatinine Ratio 17.9 (10-20); Bilirubin,Total 0.5 mg/dl (0.2-1.0); Calcium 9.2 mg/dl (8.6-10.3); Creatinine Clr Calc Pharmacy 58.9 ml/min; Globulin 2.9 gm/dl (2.5-4.0); Potassium 4.1 mmol/L (3.5-5.1); Total Protein 6.9 gm/dl (6.0-8.3)
[2024-08-03] MEDS ORDERED: POLYETHYLENE (MIRALAX) 17 GM PACK PO PRN (02:13)
[2024-08-03] MEDS: ACETAMINOPHEN 325 MG TAB PO PRN (02:50)
[2024-08-03] MEDS: DOCUSATE SODIUM/SENNA 50/8.6MG TAB PO SCH ×2 (03:43→09:02)
[2024-08-03] MEDS: oxyCODONE HCL IR 5 MG TAB (IMMEDIATE RELEASE) PO PRN (05:59)
[2024-08-03] MEDS: ATORVASTATIN 10 MG TAB PO SCH (07:27)
[2024-08-03] MEDS: cefaDROXiL 500 MG CAP PO SCH (07:27)
[2024-08-03] MEDS: CALCIUM CARBONATE 1250MG TAB PO SCH (07:27)
[2024-08-03] MEDS: ASPIRIN 81 MG ECTAB PO SCH (07:27)
[2024-08-03] MEDS: GABAPENTIN 300 MG CAP PO SCH (07:27)
[2024-08-03] MEDS: PANTOprazole 40 MG TAB PO SCH (07:27)
[2024-08-03] MEDS: CHOLECALCIFEROL 25 MCG (1000 UNITS) TAB PO SCH (07:28)
[2024-08-03] MEDS: lisinopril 40 MG TAB PO SCH (07:28)
[2024-08-03] MEDS: METOPROLOL SUCC 50MG EXT REL TAB PO SCH (07:28)
[2024-08-03 07:34] LABS: Estimated Average Glucose 117 mg/dl; Hemoglobin A1C 5.7 % (4.5-5.6)
--- NOTE | 2024-08-03 08:33 | Hospitalist Progress Note ---
Date of Service August 03, 2024 Assessment & Plan (1) Fracture of acromial process: Plan: Sachi Negron is a 79y/o F with PMHx significant for HTN, HLD, GERD, primary osteoarthritis of first carpometacarpal joint of left hand, age-related osteoporosis, sacroiliitis, primary osteoarthritis of right knee s/p right total knee arthroplasty, history of reverse total replacement of left shoulder and anxiety who presented to the ED via EMS from home on 08/02/2024 with complaint of left shoulder pain and was ultimately found to have an acute nondisplaced fracture through the base of the acromion process of the left shoulder. L Shoulder XR: Acute nondisplaced fracture through the acromion. L Shoulder CT: Acute nondisplaced fracture through the base of the acromion process, s/p reverse left shoulder arthroplasty w/o dislocation or periprosthetic fracture. Appreciate orthopedic consultation. Continue PRN analgesia. Obtain PT/OT evaluations. Continue scheduled bowel regimen. (2) Leukocytosis: Plan: Likely 2/2 pain and discomfort. No current infectious signs/symptoms. Continue to monitor CBC. (3) Primary osteoarthritis of right knee: (4) Status post total right knee replacement: Plan: Recently underwent R total knee arthroplasty performed by Dr. Tony Wilson on 08/01/2024. On 10-day course of cefadroxil postoperatively as directed by orthopedics - continue. Continue gabapentin and ASA for postoperative DVT prophylaxis - will need to be on ASA 81mg BID for a total of 6 weeks following her R total knee arthroplasty. (5) HTN (hypertension): Plan: BP slightly elevated this morning - likely 2/2 pain. Continue lisinopril and metoprolol succinate. Continue routine BP monitoring. Other Chronic Medical Conditions: HLD - Continue statin. Anxiety - Continue Zoloft. Prediabetes - Hgb A1c was 5.5 in April 2023. Updated Hgb A1c today of 5.7%. GERD - Continue Pepcid and PPI. DVT Prophylaxis: ASA as per above - continue. Code Status: FULL CODE PCP: Elio Bright PA-C Disposition: Discharge plans uncertain at this time pending orthopedic and PT/OT evaluations. Patient seen in collaboration with Dr. Caro. Please see addendum. I spent a total of minutes coordinating, documenting, and providing care for this patient excluding time spent in the performance of separately billed services or time spent by another provider/QHP. This included personally reviewing all current laboratories and imaging studies, medical reconciliation, outpatient chart review and discussion with specialists. This chart was completed in part utilizing Speech Voice Recognition Software. Grammatical errors, random word insertions, pronoun errors, and incomplete sentences are an occasional consequence of this system due to software limitations, ambient noise, and hardware issues. Any formal questions or concerns about the content, text, or information contained within the body of this dictation should be directly addressed to the provider for clarification. Admission and Anticipated Discharge Date Admission Date: August 03, 2024 Subjective Patient seen and examined at bedside in room N284-1. NAEO. Review of Systems Review of Systems: At least ten systems reviewed and negative, except as noted in the subjective section. Results & Data Results & Data Vital Signs (Past 12 Hours) Vital Signs Temp Pulse Pulse Pulse Resp BP BP 08/03/24 07:49 36.5 C 69 20 162/84 H 08/03/24 07:25 08/03/24 02:35 08/03/24 02:35 36.3 C L 71 18 156/84 H 08/03/24 02:21 67 16 138/80 08/03/24 00:33 147/80 H 08/03/24 00:00 08/02/24 23:17 36.9 C 75 18 161/89 H 08/02/24 21:55 69 16 Pulse Ox O2 Del Method O2 Flow Rate 08/03/24 07:49 98 Room Air 08/03/24 07:25 Room Air 08/03/24 02:35 Nasal Cannula 1 08/03/24 02:35 100 Nasal Cannula 1 08/03/24 02:21 98 Nasal Cannula 2 08/03/24 00:33 08/03/24 00:00 Room Air 08/02/24 23:17 96 Room Air 08/02/24 21:55 98 Room Air Laboratory Results Short CBC 08/03/24 Range/Units 00:15 WBC 12.84 H (4.8-10.8) K/ul Hgb 12.9 (12.0-16.0) g/dl Hct 38.3 (37.0-47.0) % Plt Count 275 (130-400) K/uL BMP 08/03/24 00:15 Sodium 139 Potassium 4.1 Chloride 104 Carbon Dioxide 31 BUN 15 Creatinine 0.84 Glucose 124 H Calcium 9.2 Liver Function 08/03/24 Range/Units 00:15 Total Bilirubin 0.5 (0.2-1.0) mg/dl AST 18 (13-39) U/L ALT 8 (7-52) U/L Alkaline Phosphatase 48 (34-104) U/L Albumin 4.0 (3.4-5.0) gm/dl Diagnostic Findings Shoulder X-Ray 08/02/24 20:27 Exam(s): XR LEFT SHOULDER, 2+ views EXAM: XR Left Shoulder Complete, 2 or More Views CLINICAL HISTORY: Reason for exam: left shoulder injury/dislocation. TECHNIQUE: Two or more views of the left shoulder. COMPARISON: No relevant prior studies available. FINDINGS: Bones/joints: Reverse left shoulder arthroplasty without dislocation or fracture. Acromioclavicular joint osteoarthritis. Heterotopic ossification along the medial aspect of the shoulder prosthesis. Soft tissues: Unremarkable. IMPRESSION: Reverse left shoulder arthroplasty without dislocation or fracture. Electronically signed by: Lan Vinson M.D. 08/02/24 22:[address] 08/02/24 21:53 Exam(s): CT LEFT SHOULDER Without Contrast EXAM: CT Left Upper Extremity Without Intravenous Contrast, Shoulder CLINICAL HISTORY: Reason for exam: shoulder injury. TECHNIQUE: Axial computed tomography images of the left shoulder without intravenous contrast. CTDI is 8 mGy and DLP is 446.74 mGy-cm. Automated exposure control was utilized for the study. A dose lowering technique was utilized adhering to the principles of ALARA. COMPARISON: Left shoulder radiographs 08/02/24 FINDINGS: Bones/joints: Acute nondisplaced fracture through the base of the acromion process (series 3, image 22). Reverse left shoulder arthroplasty without dislocation or periprosthetic fracture. Soft tissues: Unremarkable. IMPRESSION: 1. Acute nondisplaced fracture through the base of the acromion process (series 3, image 22). 2. Reverse left shoulder arthroplasty without dislocation or periprosthetic fracture. Electronically signed by: Lan Vinson M.D. 08/02/24 22:53 PM (1) Fracture of acromial process Encounter type: initial encounter Fracture alignment: nondisplaced Fracture type: closed Laterality: left Qualified Code(s): S42.125A - Nondisplaced fracture of acromial process, left shoulder, initial encounter for closed fracture (2) Leukocytosis Leukocytosis type: unspecified Qualified Code(s): D72.829 - Elevated white blood cell count, unspecified (5) HTN (hypertension) Hypertension type: unspecified Qualified Code(s): I10 - Essential (primary) hypertension
--- NOTE | 2024-08-03 11:09 | Orthopedic Consultation ---
Date of Service August 03, 2024 Assessment & Plan (1) Status post total right knee replacement: (2) Fracture of acromial process: (3) Injury of left shoulder: (4) Left shoulder pain: Plan 79-year-old female well-known to the [facility] physician group orthopedic se trina, is POD# 2 s/p right total knee arthroplasty by Dr. Wilson, as well as approximately 16 months status post a left reverse total shoulder arthroplasty on 03/23/[address] Wilson. Has a nondisplaced left acromion process fracture sustained while doing a dressing change at the right knee operative site and reapplying SIRENA hose stocking to the right lower extremity. Fracture is nondisplaced and should ultimately not affect the function of her left shoulder prosthetic joint, and so no surgical intervention is warranted at this time. Plan: 1. Non-WB LUE; con't simple sling. May come out of sling for left elbow, wrist, and digit ROM, as well as for hygiene purposes. 2. PT/OT for LUE and RLE. 3. Pain control doing well with current pain regimen. 4. Disposition -per primary, but patient is orthopedically stable for discharge once she has been deemed safe to do so by PT/OT. She wishes to return home with assistance of her sister. She already has [facility] arranged to come to her sister's house for postoperative care of the right knee, and they can work with her for the left shoulder as well. 5. F/u as scheduled w/ first post-op visit --currently scheduled for at 09:30 with Quentin White PA-C, at which time she can be further evaluated for both issues. History of Present Illness Reason for Consultation: . Requesting Physician: . Attending Physician: Hilario Caro MD Pleasant 79-year-old female who just underwent a right total knee arthroplasty by Dr. Wilson 2 days ago on 08/01/2024 reported to the [facility] ED last night with complaints of left shoulder region pain. She was discharged home in stable condition and doing well relative to her right knee, but she was apparently attempting to pull on her SIRENA hose stocking while doing a dressing change and felt a pop and pain in the left shoulder. Workup with x-ray was negative for fracture and showed the left reverse total shoulder arthroplasty prosthesis in good position and without dislocation or periprosthetic fracture. However, a follow-on CT scan demonstrated an acute, nondisplaced fracture through the base of the acromion process. Patient was placed into a simple sling. She had told the ED providers that she wished to return home last night, but then had changed her mind at some point and decided to be admitted for pain control purposes. It is noted that she is not admitted due to any issues with the recent right total knee arthroplasty, except for the fact that there was some concern that recently having that, with now the left acromion fracture, it could affect her mobility. Allergies Allergy/AdvReac Type Severity Reaction Status Date / Time iodine Allergy Mild Rash Verified 08/03/24 00:19 Home Medications Medication Instructions Recorded Confirmed Type alendronate 70 mg tablet 70 mg PO WK 02/27/23 08/03/24 History atorvastatin 10 mg tablet 10 mg PO QAM 02/27/23 08/03/24 History calcium carbonate (Calcium 600) 600 mg PO QAM 02/27/23 08/03/24 History cholecalciferol (vitamin D3) 25 25 mcg PO QAM 02/27/23 08/03/24 History mcg (1,000 unit) capsule (Vitamin D3) famotidine 20 mg tablet 20 mg PO HS 02/27/23 08/03/24 History gabapentin 300 mg capsule 300 mg PO BID 02/27/23 08/03/24 History lisinopril 40 mg tablet 40 mg PO QAM 02/27/23 08/03/24 History omeprazole 20 mg capsule,delayed 20 mg PO QAM 02/27/23 08/03/24 History release sertraline 100 mg tablet 100 mg PO HS 02/27/23 08/03/24 History aspirin 81 mg tablet,delayed 81 mg PO BID #84 tabs 08/01/24 08/03/24 Rx release (Adult Aspirin Regimen) cefadroxil 500 mg capsule 500 mg PO BID 10 days #20 caps 08/01/24 08/03/24 Rx oxycodone 5 mg tablet 5 mg PO Q6H PRN pain #30 tabs 08/01/24 08/03/24 Rx metoprolol succinate 50 mg 50 mg PO DAILY 08/03/24 08/03/24 History tablet,extended release 24 hr omega-3 fatty acids 1,000 mg 1,000 mg PO QAM 08/03/24 08/03/24 History capsule Past Med/Surg History Problem List (Updated 08/03/24 @ 08:52 by Sophia Contreras PA-C) Leukocytosis Status post total right knee replacement Primary osteoarthritis of right knee Fracture of acromial process (Acute) Injury of left shoulder (Acute) Left shoulder pain (Acute) Aftercare following right knee joint replacement surgery Status post right knee replacement (~07/2024) Encounter for pre-operative examination Right knee pain (Acute) Hernia (Chronic) HTN (hypertension) (Chronic) Follows with [facility] ([facility]) Medical History Osteoarthritis Hypertension Depression with anxiety Hyperlipidemia GERD (gastroesophageal reflux disease) Surgical History 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) History of hysterectomy Hx of cardiac catheterization History of esophagogastroduodenoscopy (EGD) Hx of colonoscopy History of shoulder surgery History of Rika fundoplication Family History Other No family history of adverse response to anesthesia Social History Smoking Status: Never smoker Second Hand Exposure: No; Do You Dip or Chew Tobacco: No; Tobacco Cessation Education Requested by Patient: No Hx Alcohol Use: No Hx Substance Use: No Preferred Language: Divehi Communication Ability: Effective Business Rules Analyst Required: No Beliefs That Will Affect Care: None Current Living Situation: Family Current Living Situation Comment: lives w/ sister Other Information That Helps Us Care for You: No Feels Safe at Home: Yes Safety Concerns: Feels Safe At This Time Assistive Devices: Cane Review of Systems All systems reviewed & are unremarkable except as noted in HPI & below. Physical Exam GENERAL: WN/WD, AA&Ox3, NAD. HEAD/FACE: Normocephalic and atraumatic. RESPIRATORY: Patient with unlabored breathing. No signs of respiratory distress. SKIN: [place], warm and dry. No rash noted. NEURO: Alert and appears oriented. Speech is fluent. PSYCH: Alert, pleasant, affect is calm. MS/EXTREMITY: Knee dressing c/d/i w/ several tiny spots of dried blood on the gauze with SIRENA hose donned to hold the dressing in place. + ankle dorsi/plantarflexion. NVI distally to RLE. Calf soft/NT. PT/DP pulses intact, 2+. Simple sling intact to left upper extremity. Positive tender to left posterior lateral shoulder at the acromion. NVI distally to L UE. Results & Data Results & Data Laboratory Results . Diagnostic Findings . Shoulder X-Ray 08/02/24 20:27 Exam(s): XR LEFT SHOULDER, 2+ views EXAM: XR Left Shoulder Complete, 2 or More Views CLINICAL HISTORY: Reason for exam: left shoulder injury/dislocation. TECHNIQUE: Two or more views of the left shoulder. COMPARISON: No relevant prior studies available. FINDINGS: Bones/joints: Reverse left shoulder arthroplasty without dislocation or fracture. Acromioclavicular joint osteoarthritis. Heterotopic ossification along the medial aspect of the shoulder prosthesis. Soft tissues: Unremarkable. IMPRESSION: Reverse left shoulder arthroplasty without dislocation or fracture. Electronically signed by: Lan Vinson M.D. 08/02/24 22:[address] 08/02/24 21:53 Exam(s): CT LEFT SHOULDER Without Contrast EXAM: CT Left Upper Extremity Without Intravenous Contrast, Shoulder CLINICAL HISTORY: Reason for exam: shoulder injury. TECHNIQUE: Axial computed tomography images of the left shoulder without intravenous contrast. CTDI is 8 mGy and DLP is 446.74 mGy-cm. Automated exposure control was utilized for the study. A dose lowering technique was utilized adhering to the principles of ALARA. COMPARISON: Left shoulder radiographs 08/02/24 FINDINGS: Bones/joints: Acute nondisplaced fracture through the base of the acromion process (series 3, image 22). Reverse left shoulder arthroplasty without dislocation or periprosthetic fracture. Soft tissues: Unremarkable. IMPRESSION: 1. Acute nondisplaced fracture through the base of the acromion process (series 3, image 22). 2. Reverse left shoulder arthroplasty without dislocation or periprosthetic fracture. Electronically signed by: Lan Vinson M.D. 08/02/24 22:53 PM PG Care Time/CCT Total # of Minutes Spent Total Time Spent with Patient: Total time spent is greater than 50% in coordination of care (as documented) at patient's floor/unit and/or counseling patient: Coding [place] [address] IN/OBS CONSULT LVL 5,80M Patient Type Established History Expanded Problem Focused Exam Expanded Problem Focused Medical Decision Making Low Complexity Diagnoses Status post total right knee replacement Z96.651 Fracture of acromial process S42.125A Encounter type: initial encounter Fracture alignment: nondisplaced Fracture type: closed Laterality: left Injury of left shoulder S49.92XA Encounter type: initial encounter Left shoulder pain M25.512 Chronicity: acute Additional Codes Fx Shoulder/Humerus - Scapula: Scapula ([id number]) (2) Fracture of acromial process Encounter type: initial encounter Fracture alignment: nondisplaced Fracture type: closed Laterality: left Qualified Code(s): S42.125A - Nondisplaced fracture of acromial process, left shoulder, initial encounter for closed fracture (3) Injury of left shoulder Encounter type: initial encounter Qualified Code(s): S49.92XA - Unspecified injury of left shoulder and upper arm, initial encounter (4) Left shoulder pain Chronicity: acute Qualified Code(s): M25.512 - Pain in left shoulder
--- NOTE | 2024-08-03 11:28 | Discharge Summary ---
Discharge Summary Date of Service August 03, 2024 Principal Dx & Hospital Course #1 = Principal Diagnosis (1) Fracture of acromial process: Sachi Negron is a 79y/o F with PMHx significant for HTN, HLD, GERD, primary osteoarthritis of first carpometacarpal joint of left hand, age-related osteoporosis, sacroiliitis, primary osteoarthritis of right knee s/p right total knee arthroplasty, history of reverse total replacement of left shoulder and anxiety who presented to the ED via EMS from home on 08/02/2024 with complaint of left shoulder pain and was ultimately found to have an acute nondisplaced fracture through the base of the acromion process of the left shoulder. She was seen and evaluated by orthopedic surgery whom recommended conservative management. She was placed in a simple sling and will have close orthopedic follow-up after discharge. (2) Leukocytosis: Likely 2/2 pain and discomfort. No identified infectious signs/symptoms. (3) Primary osteoarthritis of right knee: (4) Status post total right knee replacement: Recently underwent R total knee arthroplasty performed by Dr. Tony Wilson on 08/01/2024. On 10-day course of cefadroxil postoperatively as directed by orthopedics - continue. Continue gabapentin and ASA for postoperative DVT prophylaxis - will need to be on ASA 81mg BID for a total of 6 weeks following her R total knee arthroplasty. (5) HTN (hypertension): BP slightly elevated this morning but improving - likely 2/2 pain. Continue lisinopril and metoprolol succinate. HLD - Continue statin. Anxiety - Continue Zoloft. Prediabetes - Hgb A1c was 5.5 in April 2023. Updated Hgb A1c today of 5.7%. GERD - Continue Pepcid and PPI. PCP: Elio Bright PA-C Disposition: Patient is being discharged home in stable condition with the suppo rt of family and services through [facility]. Patient seen in collaboration with Dr. Caro. Please see addendum. I spent a total of 50 minutes coordinating, documenting, and providing care for this patient excluding time spent in the performance of separately billed services or time spent by another provider/QHP. This included personally reviewing all current laboratories and imaging studies, medical reconciliation, outpatient chart review and discussion with specialists. This chart was completed in part utilizing Speech Voice Recognition Software. Grammatical errors, random word insertions, pronoun errors, and incomplete sentences are an occasional consequence of this system due to software limitations, ambient noise, and hardware issues. Any formal questions or concerns about the content, text, or information contained within the body of this dictation should be directly addressed to the provider for clarification. Notes For Next Care Provider Scheduled for outpatient orthopedic follow-up appointment with Dr. Wilson on 08/17/2024. Medication Changes From Visit No medication changes were made during this admission. Admission HPI Per Admitting Provider History obtained from patient and records. Medical history significant for hypertension, hyperlipidemia, GERD, prediabetes, sacroiliitis as per records, anxiety disorder. Recent overnight confinement under Orthopedics service last August 01 to 2024 for elective right total knee arthroplasty. Unremarkable postop course prior to discharge home yesterday. Patient was trying to put on on her compression stocking at home yesterday when she heard on pop on her shoulder resulting in excruciating left shoulder pain. No chest pain, no SOB. No abdominal pain. Last BM was prior to surgery 2 days ago. Patient transported to ER by EMS. Nondisplaced fracture on left acromion process. Patient uncomfortable going home. 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 NAD. Sitting up in bed. Pleasant. Appears comfortable. A+Ox3. Family present at bedside. HEENT: Normocephalic, atraumatic. Conjunctivae normal. External ear and nose normal, oropharynx normal. Respiratory: Normal respiratory effort, lungs clear to auscultation, no wheeze/rales/rhonchi. No accessory muscle use. Cardiovascular: Regular rate and rhythm. Normal peripheral pulses. No BLE edema. Abdomen/GI: Normoactive bowel sounds, soft. Nondistended. Nontender to palpation in all quadrants. Extremities/Musculoskeletal: No cyanosis or clubbing. LUE in simple sling. R knee C/D/I with BLE SIRENA hose stockings in place. Neurologic: No overt focal deficits. CN's II-XI not formally tested but appear grossly intact bilaterally. Updated Medication List Medication Instructions Recorded Confirmed Type alendronate 70 mg tablet 70 mg PO WK 02/27/23 08/03/24 History atorvastatin 10 mg tablet 10 mg PO QAM 02/27/23 08/03/24 History calcium carbonate (Calcium 600) 600 mg PO QAM 02/27/23 08/03/24 History cholecalciferol (vitamin D3) 25 25 mcg PO QAM 02/27/23 08/03/24 History mcg (1,000 unit) capsule (Vitamin D3) famotidine 20 mg tablet 20 mg PO HS 02/27/23 08/03/24 History gabapentin 300 mg capsule 300 mg PO BID 02/27/23 08/03/24 History lisinopril 40 mg tablet 40 mg PO QAM 02/27/23 08/03/24 History omeprazole 20 mg capsule,delayed 20 mg PO QAM 02/27/23 08/03/24 History release sertraline 100 mg tablet 100 mg PO HS 02/27/23 08/03/24 History aspirin 81 mg tablet,delayed 81 mg PO BID #84 tabs 08/01/24 08/03/24 Rx release (Adult Aspirin Regimen) cefadroxil 500 mg capsule 500 mg PO BID 10 days #20 caps 08/01/24 08/03/24 Rx oxycodone 5 mg tablet 5 mg PO Q6H PRN pain #30 tabs 08/01/24 08/03/24 Rx metoprolol succinate 50 mg 50 mg PO DAILY 08/03/24 08/03/24 History tablet,extended release 24 hr omega-3 fatty acids 1,000 mg 1,000 mg PO QAM 08/03/24 08/03/24 History capsule Hospital Stay Data Consultations 08/03/24 01:20 Consult Orthopedic Surgery Routine Diagnostic Imagining Performed 08/02/24 21:53 CT shoulder LT wo con Stat Discharge Instructions Given to Patient (Per Discharging Provider) howard Springer were admitted to [facility] after you were found to have a left acromial process fracture. An acromial fracture is a break in the acromion, which is part of the shoulder blade (scapula). The acromion is the bony part that extends over the top of the shoulder and connects to the clavicle (collarbone), forming part of the shoulder joint. You were seen and evaluated by orthopedic surgery whom recommended conservative management including nonweightbearing status of your left upper extremity and wearing a simple sling. You have home health services already established through [facility]. You are scheduled to follow-up with orthopedic surgery on Thursday, August 17, 2024. Please attend this follow-up appointment as scheduled! Continue to take your antibiotic, cefadroxil, as previously prescribed by orthopedic surgery in order to complete the full 10-day course. Also continue to take the aspirin as prescribed in order to prevent blood clots! RECOMMENDATIONS FOR FOLLOW-UP: If you have not already, please call your primary care physician's office to schedule a routine hospital discharge follow-up appointment! Seek medical attention if you have: * temperature above 101F * chest pain or trouble breathing * abdominal pain, nausea, vomiting * diarrhea, dark stools or bloody stools * any unanswered questions or concerns Call 911 if symptoms are severe. Please take good care of yourself! It has been a pleasure taking care of you. If you have any questions regarding your recent hospitalization please contact [facility] and request Kay Geovannaist @ [phone]. Total Time Total Time Spent Total Time Spent (In Minutes): 50 Supervising Physician Co-Signing Physician Notes Pt seen and examined by me, care coordinated w/ Sophia Contreras PA-C. Pls refer to her note above for further detail. Pt seen lying in bed in NAD. Left arm in sling, L shoulder tender to palpation. TEDs applied to LEs b/l. Dressings over R knee. Pt seen together with orthopedics PA at the bedside. Pt seen by PT as well, plan to return home and follow up w/ orthopedics as outpt. MD [place]
[2024-08-03 12:33] VITALS: PULSE 71
[2024-08-03 12:37] VITALS: BP 152/82; RESP 18; TEMP 98.4; O2SAT 92
[2024-08-03] MEDS ORDERED: FAMOTIDINE 20 MG TAB PO SCH (21:00)
[2024-08-03] MEDS ORDERED: SERTRALINE HCL 100 MG TABLET PO SCH (21:00)
[2024-08-09] MEDS ORDERED: ALENDRONATE SODIUM 70 MG TAB PO SCH (07:00)
== END 2024-08-03 13:14 | disposition home health service (06) ==
LOC: 2N 20:07 → ED 20:07 → 2N 08-03 02:21
DX: Z79.82 Long term (current) use of aspirin; E78.5 Hyperlipidemia, unspecified; Z79.899 Other long term (current) drug therapy; I10 Essential (primary) hypertension; Z96.651 Presence of right artificial knee joint; X50.0XXA Overexertion from strenuous movement or load, initial encounter; Z88.8 Allergy status to other drugs, medicaments and biological substances; R73.03 Prediabetes; D72.829 Elevated white blood cell count, unspecified; F41.9 Anxiety disorder, unspecified; S42.125A Nondisplaced fracture of acromial process, left shoulder, initial encounter for closed fracture; Z88.5 Allergy status to narcotic agent

== ENCOUNTER 2025-04-16 09:50 | Inpatient (IN) ==
[2025-04-16 10:41] LABS: Appearance Urine Clear (Clear); Bacteria Urine Automated None Seen (None Seen); Cast Urine Automated 0-2 /lpf (0-2); Epithelial Cell Urine Auto 0-2 /hpf (0-2); Glucose Urine UA Negative (Negative); RBC Urine Automated 0-2 /hpf (0-2); WBC Urine Automated 0-5 /hpf (0-5)
[2025-04-16 10:41] LABS: Hematocrit (blood only) 40.5 % (37.0-47.0); Hemoglobin 13.9 g/dL (12.0-16.0); Immature Granulocytes # (auto) 0.02 K/uL (0.01-0.20); Immature Granulocytes % (auto) 0.3 %; Mean Corpuscular Hemoglobin 30.3 pg (25.0-34.0); Mean Corpuscular Volume 88.4 fL (80.0-100.0); Platelet Count 327 K/uL (130-400); RDW Standard Deviation 39.7 fL (36.4-46.3); Red Blood Count 4.58 M/uL (4.20-5.40); White Blood Count 7.28 K/ul (4.8-10.8)
[2025-04-16 11:00] LABS: Alanine Aminotransferase 10.0 U/L (7-52); Albumin Globulin Ratio 1.0 (0.9-2); Albumin Level 3.8 gm/dl (3.4-5.0); Alkaline Phosphatase 65.0 U/L (34-104); Anion Gap 8.0 (3-11); Bilirubin,Total 0.6 mg/dl (0.2-1.0); Blood Urea Nitrogen 10.0 mg/dl (6-23); Calcium 9.5 mg/dl (8.6-10.3); Carbon Dioxide 29.0 mmol/L (21-32); Chloride 99.0 mmol/L (98-107); Creatinine Clr Calc Pharmacy 58.7 ml/min; Globulin 3.8 gm/dl (2.5-4.0); Glucose 108.0 mg/dl (70-99(Fasting)); Lipase 26.0 U/L (11-82); Potassium 3.8 mmol/L (3.5-5.1); Sodium 136.0 mmol/L (136-145); Total Protein 7.6 gm/dl (6.0-8.3)
[2025-04-16] MEDS: diphenhydrAMINE 50 MG/ML VIAL IV ONE (13:05)
[2025-04-16 13:10] LABS: Magnesium 1.9 mg/dl (1.7-2.4)
[2025-04-16] MEDS: OPTIRAY 320 100ml IV ONE (13:22)
--- NOTE | 2025-04-16 14:04 | CT Scan Report ---
ABDOMEN AND PELVIS CT WITH IV CONTRAST CT DOSE: 1099.16 mGy.cm HISTORY: Acute onset abdominal pain abd pain TECHNIQUE: Multiaxial CT images of the abdomen and pelvis were performed following the IV administrat ion of 95 cc of Optiray, A dose lowering technique was utilized adhering to the principles of ALARA. COMPARISON STUDY: CT abdomen and pelvis 06/20/2013 FINDINGS: Clear lung bases. No pneumatosis or pneumoperitoneum. Unremarkable spleen, pancreas an left adrenal gland. 1.5 cm right adrenal adenoma previously measured 10 mm. Unremarkable gallbladder and liver. Patent portal vein. Exophytic cyst of the superior pole right kidney measures 3 cm. Punctate n onobstructing calculi of the kidneys again noted. No ureteral calculi or hydronephrosis. Urinary blad sincere wall thickening with partial distention. Hysterectomy. Atherosclerosis of the aorta without aneur ysm. Peripherally calcified 4.5 x 4.3 x 3.0 cm retroperitoneal structure on image 120 series 3 appear s stable and benign. No bowel obstruction. Tiny fat filled umbilical hernia. Colonic diverticulosis with mild acute sigmoi d diverticulitis. Possible small intramural abscess on image 214 measures 1.5 cm. No drainable absces s identified. Scattered large bowel air-fluid levels. Noninflamed appendix. Degenerative changes of t he spine, pelvis and hips. IMPRESSION: 1. Mild acute sigmoid diverticulitis with probable small intramural abscess. 2. No pneumoperitoneum, bowel obstruction or drainable fluid collection. 3. Nonobstructing bilateral nephrolithiasis. 4. Additional findings as above. ACT 112: Negative or not required by law. The above report was generated using voice recognition software. It may contain grammatical, syntax o r spelling errors. Electronically signed by: Segundo Gray M.D. 04/16/2025 2:02 PM
[2025-04-16] MEDS: PIPERACILLIN/TAZOBACTAM 4.5 GM/120 ML BAG IV ONE (14:18)
--- NOTE | 2025-04-16 14:50 | History & Physical Report ---
Date of Service April 16, 2025 Assessment & Plan (1) Sigmoid diverticulitis: Plan Patient is a 80y/o F with PMHx significant for HTN, HLD, GERD, primary osteoarthritis of first carpometacarpal joint of left hand, age-related osteoporosis, sacroiliitis, primary osteoarthritis of right knee s/p right total knee arthroplasty, history of reverse total replacement of left shoulder and anxiety who presented to the ED with c/o abdominal pain and diarrhea. CTAP findings: 1. Mild acute sigmoid diverticulitis with probable small intramural abscess measuring 1.5cm. No drainable abscess identified. 2. No pneumoperitoneum, bowel obstruction or drainable fluid collection. 3. Nonobstructing bilateral nephrolithiasis. #Mild acute sigmoid diverticulitis with probable small intramural abscess CTAP findings as per above Labs grossly unremarkable, no leukocytosis Hemodynamically stable, afebrile S/p IV Solu-Medrol, IV Benadryl in ED prior to CT 2/ iodine allergy Gen surg consulted >> no acute surgical intervention; recommending conservative management with NPO status, IVF, IV ABX and PRN analgesia Started on IV Zosyn in ED, continue for now MIVF, PRN IV morphine, PRN antiemetics Replete electrolytes PRN Check stool Biofire, C. diff testing #HTN Continue home antiHTNs #HLD Continue statin, ASA #Insomnia Continue trazodone (recently started) #Osteoporosis Hold alendronate for now, can resume on DC #GERD Continue Pepcid, PPI #Anxiety/depression Continue Zoloft #Prediabetes Hgb A1c 5.7% as of July 2024 DVT Prophylaxis: SCDs/TEDs Code Status: FULL CODE PCP: Elio Bright PA-C Disposition: Admit to med/surg Patient seen in collaboration with Dr. Galarza. Please see addendum. I spent a total of 55 minutes coordinating, documenting, and providing care for this patient excluding time spent in the performance of separately billed services or time spent by another provider/QHP. This included personally reviewing all current laboratories and imaging studies, medical reconciliation, outpatient chart review and discussion with specialists. History of Present Illness Chief Complaint: Abdominal pain, diarrhea Primary Care Provider: Elio Bright Patient is a 80y/o F with PMHx significant for HTN, HLD, GERD, primary osteoarthritis of first carpometacarpal joint of left hand, age-related osteoporosis, sacroiliitis, primary osteoarthritis of right knee s/p right total knee arthroplasty, history of reverse total replacement of left shoulder and anxiety who presented to the ED with c/o abdominal pain and diarrhea. Started with lower abdominal pain, loose stools and poor po intake last Thursday. Was seen by PCP this past Thursday and started on po ciprofloxacin/Flagyl. Notes some improvement in her abdominal pain. Loose stools persist, describes mucous appearance of stools. No reported fevers. Has been able to tolerate fluids, some bone broth. Denies any N/V. Feeling weak since her symptoms started. No reported falls or trauma. Has been compliant with her medications, most recently took a dose of ciprofloxacin this morning. Lives with her sister. Ambulates independently. Allergies Allergy/AdvReac Type Severity Reaction Status Date / Time iodine Allergy Mild Rash Verified 08/03/24 00:19 Home Medications Medication Instructions Recorded Confirmed Type alendronate 70 mg tablet 70 mg PO WK 02/27/23 04/16/25 History atorvastatin 10 mg tablet 10 mg PO QAM 02/27/23 04/16/25 History calcium carbonate (Calcium 600) 600 mg PO QAM 02/27/23 04/16/25 History cholecalciferol (vitamin D3) 25 25 mcg PO QAM 02/27/23 04/16/25 History mcg (1,000 unit) capsule (Vitamin D3) famotidine 20 mg tablet 20 mg PO HS 02/27/23 04/16/25 History lisinopril 40 mg tablet 40 mg PO QAM 02/27/23 04/16/25 History omeprazole 20 mg capsule,delayed 20 mg PO QAM 02/27/23 04/16/25 History release sertraline 100 mg tablet 100 mg PO HS 02/27/23 04/16/25 History aspirin 81 mg tablet,delayed 81 mg PO BID #84 tabs 08/01/24 04/16/25 Rx release (Adult Aspirin Regimen) metoprolol succinate 50 mg 50 mg PO QAM 08/03/24 04/16/25 History tablet,extended release 24 hr omega-3 fatty acids 1,000 mg 1,000 mg PO QAM 08/03/24 04/16/25 History capsule ciprofloxacin HCl 750 mg tablet 750 mg PO BID 04/16/25 04/16/25 History metronidazole 500 mg tablet 500 mg PO TID 04/16/25 04/16/25 History trazodone 50 mg tablet 50 mg PO HS 04/16/25 04/16/25 History Past Med/Surg History Problem List (Updated 04/16/25 @ 16:40 by Gigi Sanchez MD) Diverticulitis of intestine with abscess (Acute) Sigmoid diverticulitis Leukocytosis Status post total right knee replacement Primary osteoarthritis of right knee Fracture of acromial process (Acute) Injury of left shoulder (Acute) Left shoulder pain (Acute) Aftercare following right knee joint replacement surgery Status post right knee replacement (~07/2024) Right knee pain (Acute) Hernia (Chronic) HTN (hypertension) (Chronic) [facility] Medical History Encounter for pre-operative examination Osteoarthritis Hypertension controlled, stable per pt Depression with anxiety Hyperlipidemia GERD (gastroesophageal reflux disease) controlled, stable per pt Surgical History 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) History of hysterectomy Hx of cardiac catheterization 08/26/22 ([facility])- chest pain > "Normal coronary arteries by angiography" History of esophagogastroduodenoscopy (EGD) Hx of colonoscopy History of shoulder surgery right History of Rika fundoplication Family History Other No family history of adverse response to anesthesia Social History Smoking Status: Never smoker Second Hand Exposure: No; Do You Dip or Chew Tobacco: No; Hx Alcohol Use: No Hx Substance Use: No Preferred Language: Mongolian Communication Ability: Effective Guard Manager Required: No Beliefs That Will Affect Care: None Current Living Situation: Family Current Living Situation Comment: sister Other Information That Helps Us Care for You: No Feels Safe at Home: Yes Safety Concerns: Feels Safe At This Time Assistive Devices: Glasses Review of Systems Review of Systems: At least ten systems reviewed and negative, except as noted in the HPI. Physical Exam Physical Exam: General: Elderly F, NAD, sitting up in bed, A&Ox3, family at bedside HEENT: Normocephalic, atraumatic, moist mucous membranes Respiratory: Normal respiratory effort, CTAB, on RA Cardiovascular: RRR, normal peripheral pulses, no BLE edema Abdomen/GI: Active bowel sounds, + mild tender in LLQ, no guarding Extremities/Musculoskeletal: No cyanosis or clubbing, extremities motor strength intact, moves all extremities Neurologic: No overt focal deficits, CN's II-XI not formally tested but appear grossly intact bilaterally Results & Data Results & Data Vital Signs (Past 12 Hours) Vital Signs Temp Pulse Pulse Resp BP BP Pulse Ox 04/16/25 12:47 85 04/16/25 12:37 85 20 128/71 95 04/16/25 09:50 36.6 C 80 18 163/82 H 99 O2 Del Method 04/16/25 12:47 04/16/25 12:37 Room Air 04/16/25 09:50 Laboratory Results Short CBC 04/16/25 Range/Units 10:27 WBC 7.28 (4.8-10.8) K/ul Hgb 13.9 (12.0-16.0) g/dL Hct 40.5 (37.0-47.0) % Plt Count 327 (130-400) K/uL BMP 04/16/25 10:27 Sodium 136 Potassium 3.8 Chloride 99 Carbon Dioxide 29 BUN 10 Creatinine 0.74 Glucose 108 H Calcium 9.5 Liver Function 04/16/25 Range/Units 10:27 Total Bilirubin 0.6 (0.2-1.0) mg/dl AST 17 (13-39) U/L ALT 10 (7-52) U/L Alkaline Phosphatase 65 (34-104) U/L Albumin 3.8 (3.4-5.0) gm/dl Urine 04/16/25 Range/Units 10:23 Urine Color Yellow Urine Appearance Clear (Clear) Urine pH 5.5 (4.5-7.5) Ur Specific Calvin 1.009 (1.000-1.030) Urine Protein Negative (Negative) Urine Glucose (UA) Negative (Negative) Diagnostic Findings Abdomen/Pelvis CT 04/16/25 12:[address] WITH IV CONTRAST CT DOSE: 1099.16 mGy.cm HISTORY: Acute onset abdominal pain abd pain TECHNIQUE: Multiaxial CT images of the abdomen and pelvis were performed following the IV administration of 95 cc of Optiray, A dose lowering technique was utilized adhering to the principles of ALARA. COMPARISON STUDY: CT abdomen and pelvis 06/20/2013 FINDINGS: Clear lung bases. No pneumatosis or pneumoperitoneum. Unremarkable spleen, pancreas an left adrenal gland. 1.5 cm right adrenal adenoma previously measured 10 mm. Unremarkable gallbladder and liver. Patent portal vein. Exophytic cyst of the superior pole right kidney measures 3 cm. Punctate nonobstructing calculi of the kidneys again noted. No ureteral calculi or hydronephrosis. Urinary bladder wall thickening with partial distention. Hysterectomy. Atherosclerosis of the aorta without aneurysm. Peripherally calcified 4.5 x 4.3 x 3.0 cm retroperitoneal structure on image 120 series 3 appears stable and benign. No bowel obstruction. Tiny fat filled umbilical hernia. Colonic diverticulosis with mild acute sigmoid diverticulitis. Possible small intramural abscess on image 214 measures 1.5 cm. No drainable abscess identified. Scattered large bowel air-fluid levels. Noninflamed appendix. Degenerative changes of the spine, pelvis and hips. IMPRESSION: 1. Mild acute sigmoid diverticulitis with probable small intramural abscess. 2. No pneumoperitoneum, bowel obstruction or drainable fluid collection. 3. Nonobstructing bilateral nephrolithiasis. 4. Additional findings as above. ACT 112: Negative or not required by law. The above report was generated using voice recognition software. It may contain grammatical, syntax or spelling errors. Electronically signed by: Segundo Gray M.D. 04/16/2025 2:02 PM Medications Administered Discontinued Medications Diphenhydramine HCl (Diphenhydramine 50 Mg/Ml Vial) 50 mg IV ONE ONE Stop: 04/16/25 12:39 Last Admin: 04/16/25 13:05 Dose: 50 mg Documented By: VIRGILIO Piperacillin Sod/Tazobactam Sod (Zosyn) 4.5 gm in 120 mls @ 240 mls/hr IV NOW ONE Stop: 04/16/25 14:39 Last Admin: 04/16/25 14:18 Dose: 240 mls/hr Documented By: CAREN Ioversol (Optiray 320 100ml) 95 ml IV ONCE ONE Stop: 04/16/25 13:23 Last Admin: 04/16/25 13:22 Dose: 95 ml Documented By: ELIAS Methylprednisolone (Methylprednisolone 125 Mg/2 Ml Vial) 40 mg IV NOW ONE Stop: 04/16/25 12:39 Last Admin: 04/16/25 13:02 Dose: 40 mg Documented By: VIRGILIO Supervising Physician Co-Signing Physician Notes I have seen and discussed the case with the collaborating advanced practitioner. I agree with the above H&P. I have reviewed and confirmed the patients medical history, the findings on physical examination, and the patients diagnosis and treatment plan with Ben MILES and agree with the information documented. evaluated patient at bedside. pain free and understands plan. daughter and daughter in law at bedside. Discussed IVF and IV abx iso abscess formation exam was notable for a pleasant and comfortable appearing woman, no acute distress, abdomen soft NTND except in LLQ #Sigmoid diverticulitis with abscess NPO for now hold antihypertensive in interim, continue BB continue zosyn for now ID consult surgery following: conservative management gentle IVF running rest of plan as above I spent a total of 15 minutes coordinating, documenting, and providing care for this patient excluding time spent in the performance of separately billed se rvices. All of the aforementioned completed outside of collaborating with the assigned advanced practitioner for a full treatment plan. I have reviewed the advanced practitioner's documentation, and I agree with, and take responsibility for the plan of care
--- NOTE | 2025-04-16 15:06 | Surgery Consultation ---
Date of Consultation April 16, 2025 Assessment & Plan (1) Sigmoid diverticulitis: 80-year-old female with sigmoid diverticulitis with small abscess formation (~1.5 cm) - failure of improvement with outpatient oral antibiotics. Most recent colonoscopy was [address] scan and ED labwork reviewed. Will attempt to manage patient with conservative, non-operative measures. She will be admitted by hospitalist team. Recommend patient be kept NPO, continue IVF, IV antibiotics, pain medication. Assessment and plan reviewed with Dr. Santiago. History of Present Illness Reason for Consultation: Sigmoid diverticulitis with small abscess formation. History of Present Illness Very pleasant 80-year-old female with 1 week history of generalized abdominal pain. She reports that she was evaluated by her PCP on Thursday and was started on oral antibiotic. She returned to PCP on Thursday reporting that she was no better and she was switched to a different antibiotic. She states that the abdominal pain became progressively worse Thursday evening into Thursday morning, so she presented at [facility] ED for evaluation. She believes that she has had similar abdominal pain in the past, but states that the pain never lasted this long. She denies any nausea or vomiting. Denies fevers and chills. She states that her most recent colonoscopy was about 1 year ago and she states that she was told that she had some polyps and continued diverticulosis. She denies any recent bloody bowel movements. Currently, patient's vital signs are stable. She is afebriel. Patient's WBC is within normal limits. CT scan of the abdomen and pelvis shows: 1. Mild acute sigmoid diverticulitis with probable small intramural abscess. 2. No pneumoperitoneum, bowel obstruction or drainable fluid collection. 3. Nonobstructing bilateral nephrolithiasis. Patient reports that she has a surgical history significant for Rika fundoplication, inguinal hernia repair, hysterectomy. Allergies Allergy/AdvReac Type Severity Reaction Status Date / Time iodine Allergy Mild Rash Verified 08/03/24 00:19 Home Medications Medication Instructions Recorded Confirmed Type alendronate 70 mg tablet 70 mg PO WK 02/27/23 08/03/24 History atorvastatin 10 mg tablet 10 mg PO QAM 02/27/23 08/03/24 History calcium carbonate (Calcium 600) 600 mg PO QAM 02/27/23 08/03/24 History cholecalciferol (vitamin D3) 25 25 mcg PO QAM 02/27/23 08/03/24 History mcg (1,000 unit) capsule (Vitamin D3) famotidine 20 mg tablet 20 mg PO HS 02/27/23 08/03/24 History gabapentin 300 mg capsule 300 mg PO BID 02/27/23 08/03/24 History lisinopril 40 mg tablet 40 mg PO QAM 02/27/23 08/03/24 History omeprazole 20 mg capsule,delayed 20 mg PO QAM 02/27/23 08/03/24 History release sertraline 100 mg tablet 100 mg PO HS 02/27/23 08/03/24 History aspirin 81 mg tablet,delayed 81 mg PO BID #84 tabs 08/01/24 08/03/24 Rx release (Adult Aspirin Regimen) oxycodone 5 mg tablet 5 mg PO Q6H PRN pain #30 tabs 08/01/24 08/03/24 Rx metoprolol succinate 50 mg 50 mg PO DAILY 08/03/24 08/03/24 History tablet,extended release 24 hr omega-3 fatty acids 1,000 mg 1,000 mg PO QAM 08/03/24 08/03/24 History capsule Patient History Medical History Encounter for pre-operative examination Osteoarthritis Hypertension Depression with anxiety Hyperlipidemia GERD (gastroesophageal reflux disease) Surgical History 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) History of hysterectomy Hx of cardiac catheterization History of esophagogastroduodenoscopy (EGD) Hx of colonoscopy History of shoulder surgery History of Rika fundoplication Family History Other No family history of adverse response to anesthesia Social History Smoking Status: Never smoker Second Hand Exposure: No; Do You Dip or Chew Tobacco: No; Hx Alcohol Use: No Hx Substance Use: No Preferred Language: Croatian Communication Ability: Effective Primer Assembler Required: No Beliefs That Will Affect Care: None Current Living Situation: Family Current Living Situation Comment: lives w/ sister Feels Safe at Home: Yes Assistive Devices: Cane Review of Systems Constitutional: as per Subjective / HPI; no fever and no chills Respiratory: no cough, no dyspnea and no wheezing Cardiovascular: no chest pain, no chest pain with activity, no dyspnea at rest and no dyspnea on exertion Gastrointestinal: + abdominal pain (generalized); no nause a and no vomiting Physical Exam Constitutional: WD/WN, vitals as above Eyes: PERRL, conjunctivae normal, anicteric sclerae Neck: normal visual inspection Respiratory: normal respiratory effort, lungs clear to auscultation Cardiovascular: RRR, no murmur, no edema Gastrointestinal (Abdomen): Inspection/Auscultation: abdomen not distended Percussion/Palpation: + abdomen tender (tender in left lower abdomen ) and abdomen soft; no guarding and abdomen not rigid Psychiatric: A+Ox3, euthymic affect Results & Data Vital Signs (Past 12 Hours) Vital Signs Temp Pulse Pulse Resp BP BP Pulse Ox 04/16/25 12:47 85 04/16/25 12:37 85 20 128/71 95 04/16/25 09:50 36.6 C 80 18 163/82 H 99 O2 Del Method 04/16/25 12:47 04/16/25 12:37 Room Air 04/16/25 09:50 PG Care Time/CCT Total # of Minutes Spent Total Time Spent with Patient: Total time spent is greater than 50% in coordination of care (as documented) at patient's floor/unit and/or counseling patient: Coding Level of Care Code 25160 INT INP/OBS CARE 2/55MIN Diagnoses Sigmoid diverticulitis K57.32
[2025-04-16] MEDS ORDERED: MoRPHine SULFATE 2 MG/ML CARP IV PRN (15:26)
--- NOTE | 2025-04-16 16:40 | Emergency Department Note ---
History of Present Illness General Chief Complaint: Abdominal Pain Stated Complaint: STOMACH PAIN, BACK PAIN, WEAKNESS Time Seen by Provider: 04/16/25 12:36 History of Present Illness Provider Complaint: abdominal pain Onset (ago): 1 day(s) Pain Consistency: constant Location: LLQ Radiation: none Current Pain Intensity: 6 Quality: + stabbing and + sharp Relieved By: + nothing Exacerbated By: + nothing Context: + recent antibiotic use (Placed on Cipro by PCP); no foreign travel, no possible food poisoning, no sick contacts, no recent surgery/procedure, no recent injury or no history of similar episodes Associated Symptoms: + nausea and + diarrhea; no vomiting, no fever, no chills, no constipation, no dysuria, no hematemesis, no hematochezia, no melena, no hematuria, no headache, no chest pain and no breathing difficulty Home Medications Medication Instructions Recorded Confirmed Type alendronate 70 mg tablet 70 mg PO WK 02/27/23 04/16/25 History atorvastatin 10 mg tablet 10 mg PO QAM 02/27/23 04/16/25 History calcium carbonate (Calcium 600) 600 mg PO QAM 02/27/23 04/16/25 History cholecalciferol (vitamin D3) 25 25 mcg PO QAM 02/27/23 04/16/25 History mcg (1,000 unit) capsule (Vitamin D3) famotidine 20 mg tablet 20 mg PO HS 02/27/23 04/16/25 History lisinopril 40 mg tablet 40 mg PO QAM 02/27/23 04/16/25 History omeprazole 20 mg capsule,delayed 20 mg PO QAM 02/27/23 04/16/25 History release sertraline 100 mg tablet 100 mg PO HS 02/27/23 04/16/25 History aspirin 81 mg tablet,delayed 81 mg PO BID #84 tabs 08/01/24 04/16/25 Rx release (Adult Aspirin Regimen) metoprolol succinate 50 mg 50 mg PO QAM 08/03/24 04/16/25 History tablet,extended release 24 hr omega-3 fatty acids 1,000 mg 1,000 mg PO QAM 08/03/24 04/16/25 History capsule ciprofloxacin HCl 750 mg tablet 750 mg PO BID 04/16/25 04/16/25 History metronidazole 500 mg tablet 500 mg PO TID 04/16/25 04/16/25 History trazodone 50 mg tablet 50 mg PO HS 04/16/25 04/16/25 History Allergies Allergy/AdvReac Type Severity Reaction Status Date / Time iodine Allergy Mild Rash Verified 08/03/24 00:19 Past Med/Surg History Problem List (Updated 04/16/25 @ 16:40 by Gigi Sanchez MD) Diverticulitis of intestine with abscess (Acute) Sigmoid diverticulitis Leukocytosis Status post total right knee replacement Primary osteoarthritis of right knee Fracture of acromial process (Acute) Injury of left shoulder (Acute) Left shoulder pain (Acute) Aftercare following right knee joint replacement surgery Status post right knee replacement (~07/2024) Right knee pain (Acute) Hernia (Chronic) HTN (hypertension) (Chronic) Follows with [facility] cardio ([facility]) Medical History Encounter for pre-operative examination Osteoarthritis Hypertension controlled, stable per pt Depression with anxiety Hyperlipidemia GERD (gastroesophageal reflux disease) controlled, stable per pt Surgical History 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) History of hysterectomy Hx of cardiac catheterization 08/26/22 ([facility])- chest pain > "Normal coronary arteries by angiography" History of esophagogastroduodenoscopy (EGD) Hx of colonoscopy History of shoulder surgery right History of Rika fundoplication Family History Other No family history of adverse response to anesthesia Social History Smoking Status: Never smoker Second Hand Exposure: No; Do You Dip or Chew Tobacco: No; Hx Alcohol Use: No Hx Substance Use: No Preferred Language: Palauan Communication Ability: Effective General Maintenance Technician Required: No Beliefs That Will Affect Care: None Current Living Situation: Family Current Living Situation Comment: lives w/ sister Feels Safe at Home: Yes Assistive Devices: Cane Physical Exam 2 Vital Signs: Vital Signs - 24 hr 04/16/25 09:50 04/16/25 12:37 04/16/25 12:47 Temperature 36.6 C Temperature Source Temporal Artery Sc an Pulse Rate 80 85 Pulse Rate [Left F anthony] 85 Pulse Rate from Sp O2 Sensor Pulse Rhythm [Left Finger] Regular Pulse Strength [Le ft Finger] Normal Respiratory Rate 18 20 Respiratory Effort / Characteristics Non-Labored Sponta neous Respiratory Depth Normal Respiratory Patter n Regular Blood Pressure 163/82 H Blood Pressure [Ri ght Arm] 128/71 Blood Pressure Chikis n 109 Blood Pressure Chikis n [Right Arm] 90 Blood Pressure Pos ition [Right Arm] Sitting Pulse Oximetry 99 95 Oxygen Delivery Me thod Room Air Sepsis Recent Feve r Within 48 Hours No Sepsis New/Unexpla ined Change in Men daniela Status N/A Sepsis Action Take n by Nursing No Action Required 04/16/25 13:29 04/16/25 13:30 04/16/25 14:18 Temperature Temperature Source Pulse Rate 85 93 H 83 Pulse Rate [Left F anthony] Pulse Rate from Sp O2 Sensor Pulse Rhythm [Left Finger] Pulse Strength [Le ft Finger] Respiratory Rate 22 19 19 Respiratory Effort / Characteristics Respiratory Depth Respiratory Patter n Blood Pressure 144/91 H 132/91 139/77 Blood Pressure [Ri ght Arm] Blood Pressure Chikis n 107 100 87 Blood Pressure Chikis n [Right Arm] Blood Pressure Pos ition [Right Arm] Pulse Oximetry 94 96 97 Oxygen Delivery Me thod Room Air Room Air Room Air Sepsis Recent Feve r Within 48 Hours Sepsis New/Unexpla ined Change in Men daniela Status Sepsis Action Take n by Nursing 04/16/25 14:30 04/16/25 15:03 04/16/25 15:03 Temperature Temperature Source Pulse Rate 77 98 H 91 H Pulse Rate [Left F anthony] Pulse Rate from Sp O2 Sensor Pulse Rhythm [Left Finger] Pulse Strength [Le ft Finger] Respiratory Rate 18 21 21 Respiratory Effort / Characteristics Respiratory Depth Respiratory Patter n Blood Pressure 116/68 151/71 H 151/71 H Blood Pressure [Ri ght Arm] Blood Pressure Chikis n 87 87 87 Blood Pressure Chikis n [Right Arm] Blood Pressure Pos ition [Right Arm] Pulse Oximetry 95 96 96 Oxygen Delivery Me thod Room Air Room Air Sepsis Recent Feve r Within 48 Hours Sepsis New/Unexpla ined Change in Men daniela Status Sepsis Action Take n by Nursing 04/16/25 15:30 04/16/25 16:00 Temperature Temperature Source Pulse Rate 91 H 97 H Pulse Rate [Left F anthony] Pulse Rate from Sp O2 Sensor 86 Pulse Rhythm [Left Finger] Pulse Strength [Le ft Finger] Respiratory Rate 21 26 H Respiratory Effort / Characteristics Respiratory Depth Respiratory Patter n Blood Pressure 137/76 133/95 Blood Pressure [Ri ght Arm] Blood Pressure Chikis n 96 100 Blood Pressure Chikis n [Right Arm] Blood Pressure Pos ition [Right Arm] Pulse Oximetry 96 96 Oxygen Delivery Me thod Room Air Sepsis Recent Feve r Within 48 Hours Sepsis New/Unexpla ined Change in Men daniela Status Sepsis Action Take n by Nursing Physical Exam: Physical Exam GENERAL: oriented to person, place, and time. appears well-developed and well- nourished. She does not appear distressed. HENT: Exam performed. -Head: Normocephalic and atraumatic. -Right Ear: External ear normal. No mastoid erythema -Left Ear: External ear normal. No mastoid erythema -Mouth/Throat: The oropharynx is clear and moist. No trismus in the jaw. No dental abscesses or uvula swelling. No oropharyngeal exudate or tonsillar abscesses. EYES: Conjunctivae and EOM are normal.Right eye exhibits no discharge. Left eye exhibits no discharge. No scleral icterus. NECK: Normal range of motion. Neck supple. No JVD present. No tracheal deviation and normal range of motion present. CV: Normal rate, regular rhythm, normal heart sounds and intact distal pulses. There is no peripheral edema. Palpable radial pulses bue. PULM/CHEST: Effort normal and breath sounds normal. No respiratory distress. No stridor. no wheezes.no rales. -Chest Wall: no tenderness to palpation ABD: The abdomen is soft. Bowel sounds are normal. no distension. No mass is present. There is tenderness to palpation of the left lower quadrant. There is no rebound, no guarding, no 's sign and no tenderness at McBurney's point. Rovsig negative MUSC/SKEL: Normal range of motion. There is no peripheral edema, tenderness or deformity. NEURO: Motor and sensation grossly intact. SKIN: Skin is warm and dry. not diaphoretic. PSYCH: normal mood and affect. Behavior is normal. Judgment and thought content normal. Course Course 1236: The patient was evaluated in room B7. A complete history and physical exam was performed Cardiac monitoring: An order was placed for continuous cardiac monitoring. The monitor shows a rate of 90 with sinus rhythm interpreted by me 1414: Vital signs stable. Labs are unremarkable. Imaging shows diverticulitis with 1.5 cm abscess. Discussed with LIDYA Laguerre for general surgery Dr. Santiago. She states continue IV antibiotics and they will follow. Admit to medicine. Patient will be admitted to the [facility] team. Administered Medications Discontinued Medications Diphenhydramine HCl (Diphenhydramine 50 Mg/Ml Vial) 50 mg IV ONE ONE Stop: 04/16/25 12:39 Last Admin: 04/16/25 13:05 Dose: 50 mg Documented By: VIRGILIO Piperacillin Sod/Tazobactam Sod (Zosyn) 4.5 gm in 120 mls @ 240 mls/hr IV NOW ONE Stop: 04/16/25 14:39 Last Admin: 04/16/25 14:18 Dose: 240 mls/hr Documented By: CAREN Ioversol (Optiray 320 100ml) 95 ml IV ONCE ONE Stop: 04/16/25 13:23 Last Admin: 04/16/25 13:22 Dose: 95 ml Documented By: ELIAS Methylprednisolone (Methylprednisolone 125 Mg/2 Ml Vial) 40 mg IV NOW ONE Stop: 04/16/25 12:39 Last Admin: 04/16/25 13:02 Dose: 40 mg Documented By: VIRGILIO Medical Decision Making Laboratory Data Attestation: I reviewed the patient's lab results. 04/16/25 10:27 04/16/25 10:27 Lab Results 04/16/25 04/16/25 Range/Units 10:23 10:27 WBC 7.28 (4.8-10.8) K/ul RBC 4.58 (4.20-5.40) M/uL Hgb 13.9 (12.0-16.0) g/dL Hct 40.5 (37.0-47.0) % MCV 88.4 (80.0-100.0) fL MCH 30.3 (25.0-34.0) pg MCHC 34.3 (32.0-36.0) g/dL RDW Std Deviation 39.7 (36.4-46.3) fL RDW Coeff of John 12.3 (11.5-14.5) % Plt Count 327 (130-400) K/uL MPV 8.6 L (9.4-12.4) fL Immature Gran % (Auto) 0.3 % Neut % (Auto) 68.9 % Lymph % (Auto) 21.0 % [place] % (Auto) 7.4 % Eos % (Auto) 1.9 % Baso % (Auto) 0.5 % Neut # (Auto) 5.01 (1.40-6.50) K/uL Lymph # (Auto) 1.53 (1.20-3.40) K/uL [place] # (Auto) 0.54 (0.11-0.59) K/uL Eos # (Auto) 0.14 (0.00-0.50) K/uL Baso # (Auto) 0.04 (0.00-0.20) K/uL Immature Gran # (Auto) 0.02 (0.01-0.20) K/uL Sodium 136 (136-145) mmol/L Potassium 3.8 (3.5-5.1) mmol/L Chloride 99 (98-107) mmol/L Carbon Dioxide 29 (21-32) mmol/L Anion Gap 8 (3-11) BUN 10 (6-23) mg/dl Creatinine 0.74 (0.6-1.2) mg/dl Est Cr Clr Drug Dosing 58.7 ml/min eGFR 82.25 BUN/Creatinine Ratio 13.5 (10-20) Glucose 108 H (70-99(Fasting)) mg/dl Calcium 9.5 (8.6-10.3) mg/dl Magnesium 1.9 (1.7-2.4) mg/dl Total Bilirubin 0.6 (0.2-1.0) mg/dl AST 17 (13-39) U/L ALT 10 (7-52) U/L Alkaline Phosphatase 65 (34-104) U/L Total Protein 7.6 (6.0-8.3) gm/dl Albumin 3.8 (3.4-5.0) gm/dl Globulin 3.8 (2.5-4.0) gm/dl Albumin/Globulin Ratio 1.0 (0.9-2) Lipase 26 (11-82) U/L Urine Color Yellow Urine Appearance Clear (Clear) Urine pH 5.5 (4.5-7.5) Ur Specific [place] 1.009 (1.000-1.030) Urine Protein Negative (Negative) Urine Glucose (UA) Negative (Negative) Urine Ketones Negative (Negative) Urine Blood Negative (Negative) Urine Nitrite Negative (Negative) Urine Bilirubin Negative (Negative) Urine Urobilinogen Negative (Negative) Ur Leukocyte Esterase Trace H (Negative) Urine WBC (Auto) 0-5 (0-5) /hpf Urine RBC (Auto) 0-2 (0-2) /hpf U Hyaline Cast (Auto) 0-2 (0-2) /lpf U Epithel Cells (Auto) 0-2 (0-2) /hpf Urine Bacteria (Auto) None Seen (None Seen) Urine Comment Imaging Data Radiologist's Impression: Abdomen/Pelvis CT 04/16/25 12:[address] WITH IV CONTRAST CT DOSE: 1099.16 mGy.cm HISTORY: Acute onset abdominal pain abd pain TECHNIQUE: Multiaxial CT images of the abdomen and pelvis were performed following the IV administration of 95 cc of Optiray, A dose lowering technique was utilized adhering to the principles of ALARA. COMPARISON STUDY: CT abdomen and pelvis 06/20/2013 FINDINGS: Clear lung bases. No pneumatosis or pneumoperitoneum. Unremarkable spleen, pancreas an left adrenal gland. 1.5 cm right adrenal adenoma previously measured 10 mm. Unremarkable gallbladder and liver. Patent portal vein. Exophytic cyst of the superior pole right kidney measures 3 cm. Punctate nonobstructing calculi of the kidneys again noted. No ureteral calculi or hydronephrosis. Urinary bladder wall thickening with partial distention. Hysterectomy. Atherosclerosis of the aorta without aneurysm. Peripherally calcified 4.5 x 4.3 x 3.0 cm retroperitoneal structure on image 120 series 3 appears stable and benign. No bowel obstruction. Tiny fat filled umbilical hernia. Colonic diverticulosis with mild acute sigmoid diverticulitis. Possible small intramural abscess on image 214 measures 1.5 cm. No drainable abscess identified. Scattered large bowel air-fluid levels. Noninflamed appendix. Degenerative changes of the spine, pelvis and hips. IMPRESSION: 1. Mild acute sigmoid diverticulitis with probable small intramural abscess. 2. No pneumoperitoneum, bowel obstruction or drainable fluid collection. 3. Nonobstructing bilateral nephrolithiasis. 4. Additional findings as above. ACT 112: Negative or not required by law. The above report was generated using voice recognition software. It may contain grammatical, syntax or spelling errors. Electronically signed by: Segundo Gray M.D. 04/16/2025 2:02 PM [facility] Narrative 1236: The patient was evaluated in room B7. A complete history and physical exam was performed Cardiac monitoring: An order was placed for continuous cardiac monitoring. The monitor shows a rate of 90 with sinus rhythm interpreted by me 1414: Vital signs stable. Labs are unremarkable. Imaging shows diverticulitis with 1.5 cm abscess. Discussed with LIDYA Laguerre for general surgery Dr. Santiago. She states continue IV antibiotics and they will follow. Admit to medicine. Patient will be admitted to the [facility] team. Impression & Plan Diverticulitis of intestine with abscess Discharge Plan Visit Data Chief Complaint: Abdominal Pain Stated Complaint: STOMACH PAIN, BACK PAIN, WEAKNESS ED Provider: Gigi Sanchez Discharge Problem: Diverticulitis of intestine with abscess Patient Disposition: Admitted As Inpatient Condition: Fair Forms Stand Alone Forms: [facility] Prescriptions Prescriptions: No Action atorvastatin 10 mg Tablet 10 mg PO QAM alendronate 70 mg Tablet 70 mg PO WK Rx Instructions: Tuesdays sertraline 100 mg Tablet 100 mg PO HS calcium carbonate [Calcium 600] 600 mg calcium (1,500 mg) Tablet 600 mg PO QAM famotidine 20 mg Tablet 20 mg PO HS omeprazole 20 mg Capsule,Delayed Release(Dr/Ec) 20 mg PO QAM lisinopril 40 mg Tablet 40 mg PO QAM cholecalciferol (vitamin D3) [Vitamin D3] 25 mcg (1,000 unit) Capsule 25 mcg PO QAM aspirin [Adult Aspirin Regimen] 81 mg tablet,delayed release (DR/EC) 81 mg PO BID Qty: 84 0RF omega-3 fatty acids 1,000 mg Capsule 1,000 mg PO QAM metoprolol succinate 50 mg tablet extended release 24 hr 50 mg PO QAM ciprofloxacin HCl 750 mg tablet 750 mg PO BID trazodone 50 mg tablet 50 mg PO HS Patient Comments: 04/16- per daughter, she thinks pt is just trying this medicine out to see if it helps her sleep. metronidazole 500 mg tablet 500 mg PO TID Referrals Referrals: Elio Patrick PA-C [Primary Care Provider] -
[2025-04-16] MEDS ORDERED: POLYETHYLENE (MIRALAX) 17 GM PACK PO PRN (17:38)
[2025-04-16] MEDS ORDERED: ONDANSETRON INJ 2 MG/ML 2 ML VIAL IV PRN (17:38)
[2025-04-16] MEDS ORDERED: MAGNESIUM HYDROXIDE SUSP 30 ML UDC PO PRN (17:38)
[2025-04-16] MEDS: SODIUM CHLORIDE 0.9% 1,000 ML IV SCH (18:04)
[2025-04-16] MEDS: PIPERACILLIN/TAZOBACTAM 4.5 GM/100 ML BAG IV SCH (19:59)
[2025-04-16] MEDS: ASPIRIN 81 MG ECTAB PO SCH (21:34)
[2025-04-16] MEDS: FAMOTIDINE 20 MG TAB PO SCH (21:34)
[2025-04-16] MEDS: SERTRALINE HCL 100 MG TABLET PO SCH (21:37)
[2025-04-16] MEDS: ACETAMINOPHEN 325 MG TAB PO PRN (21:40)
[2025-04-16 22:57] LABS: Cdiff Toxin B Gene (2yr or >) Negative Cdiff Gene (Neg)
[2025-04-16 23:33] LABS: Adenovirus F 40/41 PCR Not Detected (NotDetected); Campylobacter PCR Not Detected (NotDetected); Enteroaggregative E.coli(EAEC) Not Detected (NotDetected); Shiga-like Toxin E.coli (STEC) Not Detected (NotDetected); Vibrio species PCR Not Detected (NotDetected)
[2025-04-17] MEDS: DICLOFENAC SOD 1% GEL 100 GM TUBE EXT PRN (04:31)
[2025-04-17 06:12] LABS: Hematocrit (blood only) 37.2 % (37.0-47.0); Hemoglobin 12.5 g/dL (12.0-16.0); Mean Corpuscular Hemoglobin 29.4 pg (25.0-34.0); Mean Corpuscular Volume 87.5 fL (80.0-100.0); Platelet Count 310 K/uL (130-400); RDW Standard Deviation 39.3 fL (36.4-46.3); Red Blood Count 4.25 M/uL (4.20-5.40); White Blood Count 7.91 K/ul (4.8-10.8)
[2025-04-17 06:29] LABS: Anion Gap 11.0 (3-11); Blood Urea Nitrogen 13.0 mg/dl (6-23); Calcium 8.8 mg/dl (8.6-10.3); Carbon Dioxide 23.0 mmol/L (21-32); Chloride 106.0 mmol/L (98-107); Creatinine Clr Calc Pharmacy 64.8 ml/min; Glucose 120.0 mg/dl (70-99(Fasting)); Magnesium 1.9 mg/dl (1.7-2.4); Potassium 3.6 mmol/L (3.5-5.1); Sodium 140.0 mmol/L (136-145)
[2025-04-17] MEDS: CHOLECALCIFEROL 25 MCG (1000 UNITS) TAB PO SCH (08:38)
[2025-04-17] MEDS: METOPROLOL SUCC 50MG EXT REL TAB PO SCH (08:38)
[2025-04-17] MEDS: ATORVASTATIN 10 MG TAB PO SCH (08:38)
--- NOTE | 2025-04-17 09:26 | Surgery Progress Note ---
Date of Service April 17, 2025 Assessment & Plan (1) Diverticulitis of intestine with abscess: (2) Sigmoid diverticulitis: Plan: Small, roughly 1.5cm likely intramural abscess seen on CT Afebrile and without leukocytosis Continue IV abx May advance to clears May have chemical DVT ppx Surgery will follow Admission and Anticipated Discharge Date Admission Date: April 16, 2025 Subjective Pt is without complaints this am. States she feels well. Denies N/V, F/C and abdominal pain. She is tolerating sips of water and states she is passing a small amount of gas. Pt denies heart palpitations. Physical Exam Constitutional: + obese and healthy appearing; not ill a ppearing, not in distress and not diaphoretic Respiratory: normal respiratory effort; no respiratory distress, no labored breathing and does not use accessory muscles Cardiovascular: Rate/Rhythm: + tachycardic Gastrointestinal (Abdomen): Percussion/Palpation: abdomen soft; abdomen nontender and no guarding Results & Data Vital Signs (Past 12 Hours) Vital Signs Temp Pulse Pulse Resp BP Pulse Ox O2 Del Method 04/17/25 08:04 36.4 C L 115 H 16 121/70 97 Room Air 04/16/25 21:29 36.8 C 104 H 18 133/84 95 Room Air PG Care Time/CCT Total # of Minutes Spent Total Time Spent with Patient: Total time spent is greater than 50% in coordination of care (as documented) at patient's floor/unit and/or counseling patient: Coding Level of Care Code 17863 SUB INP/OBS CARE 06/04MIN Diagnoses Diverticulitis of large intestine with abscess without bleeding K57.20 Diverticulitis site: large intestine Diverticulitis bleeding: without bleeding Sigmoid diverticulitis K57.32 (1) Diverticulitis of intestine with abscess Diverticulitis site: large intestine Diverticulitis bleeding: without bleeding Qualified Code(s): K57.20 - Diverticulitis of large intestine with perforation and abscess without bleeding
--- NOTE | 2025-04-17 12:36 | Hospitalist Progress Note ---
Date of Service April 17, 2025 Assessment & Plan (1) Sigmoid diverticulitis: Plan Patient is a 80y/o F with PMHx significant for HTN, HLD, GERD, primary osteoarthritis of first carpometacarpal joint of left hand, age-related osteoporosis, sacroiliitis, primary osteoarthritis of right knee s/p right total knee arthroplasty, history of reverse total replacement of left shoulder and anxiety who presented to the ED with c/o abdominal pain and diarrhea. CTAP findings: 1. Mild acute sigmoid diverticulitis with probable small intramural abscess measuring 1.5cm. No drainable abscess identified. 2. No pneumoperitoneum, bowel obstruction or drainable fluid collection. 3. Nonobstructing bilateral nephrolithiasis. #Mild acute sigmoid diverticulitis with probable small intramural abscess CTAP findings as per above Labs grossly unremarkable, no leukocytosis Hemodynamically stable, afebrile S/p IV Solu-Medrol, IV Benadryl in ED prior to CT / iodine allergy Gen surg consulted >> no acute surgical intervention; recommending conservative management Continue IV zosyn advance to clear liquids and monitor, pt is now pain free but continues with freq loose stools continue gentle IVF for now, when drinking adequately this can be stopped Stool biofire and cdiff negative #HTN Continue lisinopril, metoprolol #HLD Continue statin, ASA #Insomnia Continue trazodone (recently started) #GERD Continue Pepcid, PPI #Anxiety/depression Continue Zoloft #Prediabetes Hgb A1c 5.7% as of July 2024 DVT Prophylaxis: SQ Lovenox Code Status: FULL CODE PCP: Elio Bright PA-C Disposition: Admit to med/surg, not yet medically stable for discharge I spent a total of 51 minutes coordinating, documenting, and providing care for this patient excluding time spent in the performance of separately billed services or time spent by another provider/QHP. This included personally reviewing all current laboratories and imaging studies, medical reconciliation, outpatient chart review and discussion with specialists. Admission and Anticipated Discharge Date Admission Date: April 16, 2025 Subjective Pt seen and examined in room 306. F/U Sigmoid diverticulitis Denies abd pain. She is having freq mucous diarrhea. She is passing gas. Denies blood. Denies f/c/s, chest, pain, sob, n/v/d. Review of Systems Review of Systems: All systems reviewed & are unremarkable except as noted in HPI & below Physical Exam Physical Exam: Gen: WD/WN, NAD, A&O x3 HEENT: Normocephalic, atraumatic, conjunctivae moist, sclerae anicteric, mucous membranes moist. Lung: Clear to Auscultation bilaterally, no wheezes/rales/rhonchi Heart: Regular rate, regular rhythm, no murmurs, rubs, or gallops Abdomen: Soft, NT, ND +BS x 4 Extremities: No edema Skin: Warm, no rash, negative turgor. Results & Data Results & Data Vital Signs (Past 12 Hours) Vital Signs Temp Pulse Resp BP Pulse Ox O2 Del Method 04/17/25 11:33 36.4 C L 75 14 133/79 97 Room Air 04/17/25 08:04 36.4 C L 115 H 16 121/70 97 Room Air Laboratory Results I have independently reviewed and interpreted patient's cbc, bmp, mag, phos Medications Administered Current Inpatient Medications Acetaminophen (Acetaminophen 325 Mg Tab) 650 mg PO Q4H PRN PRN Reason: pain/fever Stop: 05/16/25 17:37 Last Admin: 04/17/25 04:30 Dose: 650 mg Aspirin (Aspirin 81 Mg Ectab) 81 mg PO BID [facility] Stop: 05/16/25 20:59 Last Admin: 04/17/25 08:38 Dose: 81 mg Atorvastatin Calcium (Atorvastatin 10 Mg Tab) 10 mg PO QAM [facility] Stop: 05/17/25 08:59 Last Admin: 04/17/25 08:38 Dose: 10 mg Diclofenac Sodium (Diclofenac Sod 1% Gel 100 Gm Tube) 2 gm EXT BID PRN; Protocol PRN Reason: leg pain Stop: 05/17/25 08:59 Last Admin: 04/17/25 04:31 Dose: 2 gm Enoxaparin Sodium (Enoxaparin Inj 40 Mg/0.4 Ml Syr) 40 mg SQ HS [facility]EL[facility]Y Stop: 05/17/25 20:59 Famotidine (Famotidine 20 Mg Tab) 20 mg PO HS [facility] Stop: 05/16/25 20:59 Last Admin: 04/16/25 21:34 Dose: 20 mg Sodium Chloride (Nss) 1,000 mls @ 80 mls/hr IV .[id number] KELSEY Stop: 04/19/25 15:29 Last Admin: 04/17/25 04:35 Dose: 80 mls/hr Piperacillin Sod/Tazobactam Sod (Zosyn) 4.5 gm in 100 mls @ 25 mls/hr IV Q8H [facility]; Protocol Stop: 04/26/25 19:59 Last Admin: 04/17/25 11:56 Dose: 25 mls/hr Lisinopril (Lisinopril 40 Mg Tab) 40 mg PO [facility] Stop: 05/17/25 08:59 Magnesium Hydroxide (Magnesium Hydroxide Susp 30 Ml Udc) 30 ml PO Q6H PRN PRN Reason: Constipation Stop: 05/16/25 17:37 Metoprolol Succinate (Metoprolol Succ 50mg Ext Rel Tab) 50 mg PO [facility] Stop: 05/17/25 08:59 Last Admin: 04/17/25 08:38 Dose: 50 mg Morphine Sulfate (Morphine Sulfate 2 Mg/Ml Carp) 1 mg IV Q4H PRN PRN Reason: Mod-Sev Pain (Scale 4-10) Stop: 04/30/25 15:25 Ondansetron HCl (Ondansetron Inj 2 Mg/Ml 2 Ml Vial) 4 mg IV Q6H PRN PRN Reason: Nausea Stop: 05/16/25 17:37 Pantoprazole Sodium (Pantoprazole 40 Mg Tab) 40 mg PO [facility] Stop: 05/17/25 08:59 Last Admin: 04/17/25 08:38 Dose: 40 mg Polyethylene Glycol (Polyethylene (Miralax) 17 Gm Pack) 17 gm PO DAILY PRN PRN Reason: Constipation Stop: 05/16/25 17:37 Sertraline HCl (Sertraline Hcl 100 Mg Tablet) 100 mg PO [facility] Stop: 05/16/25 20:59 Last Admin: 04/16/25 21:37 Dose: 100 mg Trazodone HCl (Trazodone Hcl 50 Mg Tab) 50 mg PO [facility] Stop: 05/16/25 20:59 Last Admin: 04/16/25 21:34 Dose: 50 mg Vitamin D (Cholecalciferol 25 Mcg (1000 Units) Tab) 25 mcg PO [facility] Stop: 05/17/25 08:59 Last Admin: 04/17/25 08:38 Dose: 25 mcg
--- NOTE | 2025-04-17 13:08 | Infectious Disease Consult ---
Date of Service April 17, 2025 Telehealth Information I performed this visit using a real-time telehealth connection between my location and the patients location ([facility]). After connecting through interactive tele-video, patient was identified by name and date of and/or wristband check.Patient (or authorized healthcare sales representative raw fibers) was informed that this was a telemedicine visit and it was being conducted confidentially over secure lines. My office door was closed and no one else was present in the room with me.Patient (or authorized healthcare sales representative raw fibers) provided consent to proceed with the visit, expressed an understanding of privacy and security of the telemedicine visit, and gave permission to have a hospital sales representative raw fibers in the room in order to assist with the visit and to conduct portions of the visit, as needed. I informed the patient (or authorized healthcare sales representative raw fibers) that I reviewed their record and presented the opportunity for them to ask any questions regarding the visit today. The patient agreed to participate. Diverticular abscess Assessment & Plan (1) Diverticulitis of intestine with abscess: Plan: No surgical intervention recommended (2) Sigmoid diverticulitis: Plan: Continue zosyn Plan Recommend continuing zosyn while inpatient and if no contra-indications on discharge can switch to levofloxacin and flagyl for 2-3 weeks with re-imaging in 2 weeks to determine resolution and final duration .An option to continue on IV zosyn was discussed with patient and family member at bedside because without cultures it is not certain the bacteria will be susceptible to the flouroquinolones but patient would prefer to try to the oral antibiotics and if the abscess does not resolve then she would consider IV antibiotics .Thank you for allowing us to participate in the care of this patient ID will sign off History of Present Illness History of Present Illness 80y/o F with PMHx HTN, HLD, GERD, 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, age-related osteoporosis, sacroiliitis, primary osteoarthritis of right knee s/p right total knee arthroplasty, history of reverse total replacement of left shoulder and anxiety who presented to the ED with c/o abdominal pain and diarrhea.Her CT abdomen revealed sigmoid diverticulitis and intra-mural abscess .Patient was evaluated by General Surgery and conservative medical management was recommended and patient is currently on IV zosyn Allergies Allergy/AdvReac Type Severity Reaction Status Date / Time iodine Allergy Mild Rash Verified 08/03/24 00:19 Home Medications Medication Instructions Recorded Confirmed Type alendronate 70 mg tablet 70 mg PO WK 02/27/23 04/16/25 History atorvastatin 10 mg tablet 10 mg PO QAM 02/27/23 04/16/25 History calcium carbonate (Calcium 600) 600 mg PO QAM 02/27/23 04/16/25 History cholecalciferol (vitamin D3) 25 25 mcg PO QAM 02/27/23 04/16/25 History mcg (1,000 unit) capsule (Vitamin D3) famotidine 20 mg tablet 20 mg PO HS 02/27/23 04/16/25 History lisinopril 40 mg tablet 40 mg PO QAM 02/27/23 04/16/25 History omeprazole 20 mg capsule,delayed 20 mg PO QAM 02/27/23 04/16/25 History release sertraline 100 mg tablet 100 mg PO HS 02/27/23 04/16/25 History aspirin 81 mg tablet,delayed 81 mg PO BID #84 tabs 08/01/24 04/16/25 Rx release (Adult Aspirin Regimen) metoprolol succinate 50 mg 50 mg PO QAM 08/03/24 04/16/25 History tablet,extended release 24 hr omega-3 fatty acids 1,000 mg 1,000 mg PO QAM 08/03/24 04/16/25 History capsule ciprofloxacin HCl 750 mg tablet 750 mg PO BID 04/16/25 04/16/25 History metronidazole 500 mg tablet 500 mg PO TID 04/16/25 04/16/25 History trazodone 50 mg tablet 50 mg PO HS 04/16/25 04/16/25 History Patient History Medical History Encounter for pre-operative examination Osteoarthritis Hypertension controlled, stable per pt Depression with anxiety Hyperlipidemia GERD (gastroesophageal reflux disease) controlled, stable per pt Surgical History 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) History of hysterectomy Hx of cardiac catheterization 08/26/22 ([facility])- chest pain > "Normal coronary arteries by angiography" History of esophagogastroduodenoscopy (EGD) Hx of colonoscopy History of shoulder surgery right History of Rika fundoplication Family History Other No family history of adverse response to anesthesia Social History Smoking Status: Never smoker Second Hand Exposure: No; Do You Dip or Chew Tobacco: No; Hx Alcohol Use: No Hx Substance Use: No Preferred Language: Wolof Communication Ability: Effective Agents' Records Clerk Required: No Beliefs That Will Affect Care: None Current Living Situation: Family Current Living Situation Comment: sister Other Information That Helps Us Care for You: No Feels Safe at Home: Yes Safety Concerns: Feels Safe At This Time Assistive Devices: None Review of Systems Denies abdominal pain but diarrhea persists Physical Exam Awake alert oriented in no respiratory distress Results & Data Vital Signs (Past 12 Hours) Vital Signs Temp Pulse Resp BP Pulse Ox O2 Del Method 04/17/25 11:33 36.4 C L 75 14 133/79 97 Room Air 04/17/25 08:04 36.4 C L 115 H 16 121/70 97 Room Air Laboratory Results No leukocytosis no blood cultures done Diagnostic Findings IMPRESSION: 1. Mild acute sigmoid diverticulitis with probable small intramural abscess. 2. No pneumoperitoneum, bowel obstruction or drainable fluid collection. 3. Nonobstructing bilateral nephrolithiasis. (1) Diverticulitis of intestine with abscess Diverticulitis bleeding: without bleeding Diverticulitis site: large intestine Qualified Code(s): K57.20 - Diverticulitis of large intestine with perforation and abscess without bleeding
[2025-04-17] MEDS: ENOXAPARIN INJ 40 MG/0.4 ML SYR SQ SCH (20:49)
[2025-04-18 06:15] LABS: Hematocrit (blood only) 36.4 % (37.0-47.0); Hemoglobin 12.1 g/dL (12.0-16.0); Mean Corpuscular Hemoglobin 28.9 pg (25.0-34.0); Mean Corpuscular Volume 87.1 fL (80.0-100.0); Platelet Count 300 K/uL (130-400); RDW Standard Deviation 39.3 fL (36.4-46.3); Red Blood Count 4.18 M/uL (4.20-5.40); White Blood Count 5.27 K/ul (4.8-10.8)
[2025-04-18 06:40] LABS: Alanine Aminotransferase 10.0 U/L (7-52); Albumin Globulin Ratio 1.3 (0.9-2); Albumin Level 3.4 gm/dl (3.4-5.0); Alkaline Phosphatase 45.0 U/L (34-104); Anion Gap 6.0 (3-11); Bilirubin,Total 0.4 mg/dl (0.2-1.0); Blood Urea Nitrogen 8.0 mg/dl (6-23); Calcium 8.6 mg/dl (8.6-10.3); Carbon Dioxide 26.0 mmol/L (21-32); Chloride 108.0 mmol/L (98-107); Creatinine Clr Calc Pharmacy 62.9 ml/min; Globulin 2.7 gm/dl (2.5-4.0); Glucose 91.0 mg/dl (70-99(Fasting)); Potassium 3.4 mmol/L (3.5-5.1); Sodium 140.0 mmol/L (136-145); Total Protein 6.1 gm/dl (6.0-8.3)
--- NOTE | 2025-04-18 08:17 | Surgery Progress Note ---
Date of Service April 18, 2025 Assessment & Plan (1) Diverticulitis of intestine with abscess: Plan: Patient here with diverticulitis with small 1.5cm intramural abscess seen on CT -She was advanced to clear liquid diet yesterday, she has been able to tolerate without any issues of worsening abdominal pain. She denies any nausea or vomiting. Will plan to advance to full liquids this morning and see how she does. -Patient is passing gas and did have a small liquid bowel movement this morning. Patient states that she did have a small amount of bright red blood noted on her toilet paper after a bowel movement, however does have a history of hemorrhoids. She otherwise is hemodynamically stable and hemoglobin 12.1 - She has been afebrile and WBC 5.27 -Continue IV antibiotic coverage (2) Sigmoid diverticulitis: Admission and Anticipated Discharge Date Admission Date: April 16, 2025 Supervising Physician Co-Signing Physician Notes I have seen and examined this patient this am. Small amount of blood on toilet paper is most likely hemorrhoidal and she has had looser stools due to the colonic illness and abx She may have a regular diet May consider discharge on 10-14 days abx if she tolerates solid food. An intramural abscess should eventually drain on its own intraluminally Follow up with colorectal surgery as an outpatient in 7-10 days where they may perform repeat imaging. Subjective -Patient seen and evaluated this morning, states that she is feeling well -Tolerating clear liquids without any issues of worsening abdominal pain. Denies any nausea or vomiting. -Passing gas and did have a small liquid bowel movement this morning. She states she noticed a small amount of bright red blood on the toilet paper, however also states that she has a history of hemorrhoids. Otherwise no overt signs of bleeding and patient is hemodynamically stable -Afebrile, WBC 5.2, and on IV abx Physical Exam Constitutional: WD/WN, vitals as above Respiratory: normal respiratory effort, lungs clear to auscultation Cardiovascular: Rate/Rhythm: regular rate Gastrointestinal (Abdomen): Abdomen soft, nondistended, nontender to palpation Results & Data Vital Signs (Past 12 Hours) Vital Signs Temp Pulse Resp BP Pulse Ox O2 Del Method 04/18/25 07:35 36.5 C 93 H 16 157/84 H 96 Room Air 04/17/25 21:09 36.5 C 87 16 126/73 95 Room Air PG Care Time/CCT Total # of Minutes Spent Total Time Spent with Patient: Total time spent is greater than 50% in coordination of care (as documented) at patient's floor/unit and/or counseling patient: [place] [address] SUB INP/OBS CARE 06/04MIN Patient Type New Medical Decision Making Straight Forward Diagnoses Diverticulitis of large intestine with abscess without bleeding K57.20 Diverticulitis bleeding: without bleeding Diverticulitis site: large intestine Sigmoid diverticulitis K57.32 (1) Diverticulitis of intestine with abscess Diverticulitis bleeding: without bleeding Diverticulitis site: large intestine Qualified Code(s): K57.20 - Diverticulitis of large intestine with perforation and abscess without bleeding
--- NOTE | 2025-04-18 08:48 | Hospitalist Progress Note ---
Date of Service April 18, 2025 Assessment & Plan (1) Sigmoid diverticulitis: Plan Patient is a 80y/o F with PMHx significant for HTN, HLD, GERD, primary osteoarthritis of first carpometacarpal joint of left hand, age-related osteoporosis, sacroiliitis, primary osteoarthritis of right knee s/p right total knee arthroplasty, history of reverse total replacement of left shoulder and anxiety who presented to the ED with c/o abdominal pain and diarrhea. CTAP findings: 1. Mild acute sigmoid diverticulitis with probable small intramural abscess measuring 1.5cm. No drainable abscess identified. 2. No pneumoperitoneum, bowel obstruction or drainable fluid collection. 3. Nonobstructing bilateral nephrolithiasis. #Mild acute sigmoid diverticulitis with probable small intramural abscess CTAP findings as per above Labs grossly unremarkable, no leukocytosis Hemodynamically stable, afebrile S/p IV Solu-Medrol, IV Benadryl in ED prior to CT 2/ iodine allergy Gen surg consulted >> no acute surgical intervention; recommending conservative management Continue IV zosyn --- ID rec switch to levofloxacin and flagyl for 2-3 weeks with re-imaging in 2 weeks to determine resolution and final duration at time of discharge Advance diet as tolerate, pt is pain free but continues with freq loose stools Off fluids Stool biofire and cdiff negative #HTN Continue lisinopril, metoprolol #HLD Continue statin, ASA #Insomnia Continue trazodone (recently started) #GERD Continue Pepcid, PPI #Anxiety/depression Continue Zoloft #Prediabetes Hgb A1c 5.7% as of July 2024 DVT Prophylaxis: SQ Lovenox Code Status: FULL CODE PCP: Elio Bright PA-C Disposition: Admit to med/surg, likely dc home tomorrow I spent a total of 51 minutes coordinating, documenting, and providing care for this patient excluding time spent in the performance of separately billed services or time spent by another provider/QHP. This included personally reviewing all current laboratories and imaging studies, medical reconciliation, outpatient chart review and discussion with specialists. Admission and Anticipated Discharge Date Admission Date: April 16, 2025 Supervising Physician Co-Signing Physician Notes Patient seen and examined independently. Discussed with above provider. Patient reports improvement in the abdominal pain. She is tolerating diet well. Reports some diarrhea. No significant events overnight. Plan to advance diet and continue IV antibiotics. Possible DC in next few days depending on clinical improvement. I have reviewed the advanced practitioner's documentation, and I agree with, and take responsibility for the plan of care I spent a total of 30 minutes coordinating, documenting, and providing care for this patient excluding time spent in the performance of separately billed services. All of the aforementioned completed while collaborating with the assigned advanced practitioner for a full treatment plan Subjective Pt reports feeling well. C/o diarrhea and noticing blood in stool which is bright red. Admits to having hx of hemorrhoids and reports a soreness. Denies abdominal pain, nausea, fever sweats or chills. Id consulted yesterday and recommended levofloxacin and flagyl for 2-3 weeks with re-imaging in 2 weeks to determine resolution and final duration. Review of Systems Review of Systems: Constitutional: No fever, sweats or chills Eyes: No diplopia, no worsening or blurred vision ENT: normal hearing, no trouble swallowing Respiratory: No cough, sputum, dyspnea at rest or on exertion Cardiovascular: No chest pain, tightness or palpitations Abdomen: No pain, nausea, vomiting, diarrhea or constipation Musculoskeletal: No joint pain, calf pain, swelling Neurologic: No weakness, numbness/tingling, or balance problems Psychiatric: No anxiety or depression Skin: No rash or itch Physical Exam Physical Exam: General: awake, alert, no apparent distress, overweight white female, BMI 32.9 Head: Normocephalic, atraumatic ENT: PERRL, EOMI, no pharyngeal exudate, mucous membranes moist Chest: Clear to auscultation, on room air, no adventitious breath sounds Cardiac: Regular rate and rhythm, no murmur, no JVD, normal peripheral pulses, good capillary refill Abdominal: NABS x 4 quadrants, soft, nondistended, nontender to palpation, no rebound or guarding, reports loose BMs 2x daily which is normal for her. Extremities: Normal inspection, no peripheral edema or erythema, calfs nontender to palpation Psych: Normal mood and affect Neuro: AAO x 3, strength intact bilaterally and rated 5/5, no motor deficits, speech is clear, no peripheral sensory deficits Results & Data Results & Data Vital Signs (Past 12 Hours) Vital Signs Temp Pulse Resp BP Pulse Ox O2 Del Method 04/18/25 07:35 36.5 C 93 H 16 157/84 H 96 Room Air 04/17/25 21:09 36.5 C 87 16 126/73 95 Room Air Laboratory Results 04/18/25 05:49 WBC 5.27 RBC 4.18 L Hgb 12.1 Hct 36.4 L MCV 87.1 MCH 28.9 MCHC 33.2 RDW Std Deviation 39.3 RDW Coeff of John 12.3 Plt Count 300 MPV 8.7 L Sodium 140 Potassium 3.4 L Chloride 108 H Carbon Dioxide 26 Anion Gap 6 BUN 8 Creatinine 0.69 Est Cr Clr Drug Dosing 62.9 eGFR 88.23 BUN/Creatinine Ratio 11.6 Glucose 91 Calcium 8.6 Total Bilirubin 0.4 AST 15 ALT 10 Alkaline Phosphatase 45 Total Protein 6.1 Albumin 3.4 Globulin 2.7 Albumin/Globulin Ratio 1.3
[2025-04-18] MEDS: LIDOCAINE 4% CREAM 15 GM TUBE EXT PRN (15:46)
[2025-04-18 23:26] VITALS: BP 142/76; PULSE 84; RESP 18; TEMP 97.7; O2SAT 97
[2025-04-19 07:35] LABS: Anion Gap 7.0 (3-11); Blood Urea Nitrogen 6.0 mg/dl (6-23); Calcium 8.6 mg/dl (8.6-10.3); Carbon Dioxide 28.0 mmol/L (21-32); Chloride 106.0 mmol/L (98-107); Creatinine Clr Calc Pharmacy 58.7 ml/min; Glucose 91.0 mg/dl (70-99(Fasting)); Potassium 3.3 mmol/L (3.5-5.1); Sodium 141.0 mmol/L (136-145)
--- NOTE | 2025-04-19 07:35 | Surgery Progress Note ---
Date of Service April 19, 2025 Assessment & Plan (1) Diverticulitis of intestine with abscess: Plan: Pt here w/ diverticulitis with small, roughly 1.5cm likely intramural abscess seen on CT WBC has been normal, shes been afebrile with stable vitals Denies pain. having + bowel function. No n/v Will advance to low fiber diet Plan to complete course of antibiotics at home for 2 weeks total Can follow up with our colorectal surgeon in a couple wks Admission and Anticipated Discharge Date Admission Date: April 16, 2025 Subjective Patient feeling well. Denies much pain, no nausea/vomiting. She is tolerating a full liquid diet. Having + bowel function. Physical Exam Physical Exam: awake/alert Respiratory: normal respiratory effort Gastrointestinal (Abdomen): Percussion/Palpation: abdomen soft; abdomen nontender Results & Data Vital Signs (Past 12 Hours) Vital Signs Temp Pulse Resp BP Pulse Ox O2 Del Method 04/18/25 23:26 97.7 F 84 18 142/76 H 97 Room Air PG Care Time/CCT Total # of Minutes Spent Total Time Spent with Patient: Total time spent is greater than 50% in coordination of care (as documented) at patient's floor/unit and/or counseling patient: Coding Level of Care Code 79007 SUB INP/OBS CARE 06/04MIN Diagnoses Diverticulitis of large intestine with abscess without bleeding K57.20 Diverticulitis bleeding: without bleeding Diverticulitis site: large intestine (1) Diverticulitis of intestine with abscess Diverticulitis bleeding: without bleeding [facility]: [facility] Qualified Code(s): K57.20 - Diverticulitis of large intestine with perforation and abscess without bleeding
[2025-04-19] MEDS: POTASSIUM CHLORIDE CRTAB 20 MEQ TABCR PO STA (09:25)
--- NOTE | 2025-04-19 10:36 | Discharge Summary ---
Date of Service April 19, 2025 Admission HPI Per Admitting Provider Patient is a 80y/o F with PMHx significant for HTN, HLD, GERD, primary osteoarthritis of first carpometacarpal joint of left hand, age-related osteoporosis, sacroiliitis, primary osteoarthritis of right knee s/p right total knee arthroplasty, history of reverse total replacement of left shoulder and anxiety who presented to the ED with c/o abdominal pain and diarrhea. Started with lower abdominal pain, loose stools and poor po intake last Thursday. Was seen by PCP this past Thursday and started on po ciprofloxacin/Flagyl. Notes some improvement in her abdominal pain. Loose stools persist, describes mucous appearance of stools. No reported fevers. Has been able to tolerate fluids, some bone broth. Denies any N/V. Feeling weak since her symptoms started. No reported falls or trauma. Has been compliant with her medications, most recently took a dose of ciprofloxacin this morning. Lives with her sister. Ambulates independently. Admission Exam Per Admitting Provider Physical Exam: General: Elderly F, NAD, sitting up in bed, A&Ox3, family at bedside HEENT: Normocephalic, atraumatic, moist mucous membranes Respiratory: Normal respiratory effort, CTAB, on RA Cardiovascular: RRR, normal peripheral pulses, no BLE edema Abdomen/GI: Active bowel sounds, + mild tender in LLQ, no guarding Extremities/Musculoskeletal: No cyanosis or clubbing, extremities motor strength intact, moves all extremities Neurologic: No overt focal deficits, CN's II-XI not formally tested but appear grossly intact bilaterally Principal Diagnosis Mild acute sigmoid diverticulitis with small intramural abscess measuring 1.5cm. Discharge Exam General: awake, alert, no apparent distress, overweight white female, BMI 32.9 Head: Normocephalic, atraumatic ENT: PERRL, EOMI, no pharyngeal exudate, mucous membranes moist Chest: Clear to auscultation, on room air, no adventitious breath sounds Cardiac: Regular rate and rhythm, no murmur, no JVD, normal peripheral pulses, good capillary refill Abdominal: NABS x 4 quadrants, soft, nondistended, nontender to palpation, no rebound or guarding Extremities: Normal inspection, no peripheral edema or erythema, calfs nontender to palpation Psych: Normal mood and affect Neuro: AAO x 3, strength intact bilaterally and rated 5/5, no motor deficits, speech is clear, no peripheral sensory deficits Discharge Data Allergies Allergy/AdvReac Type Severity Reaction Status Date / Time iodine Allergy Mild Rash Verified 08/03/24 00:19 Consultations 04/16/25 14:19 Consult General Surgery Stat 04/16/25 14:21 ED Decision to Admit Stat 04/16/25 20:21 Consult Infectious Diseases Routine Ordered Studies 04/16/25 12:38 CT abd pelvis IV con only Stat Hospital Course (1) Sigmoid diverticulitis: Plan Patient is a 80y/o F with PMHx significant for HTN, HLD, GERD, primary osteoarthritis of first carpometacarpal joint of left hand, age-related osteoporosis, sacroiliitis, primary osteoarthritis of right knee s/p right total knee arthroplasty, history of reverse total replacement of left shoulder and anxiety who presented to the ED with c/o abdominal pain and diarrhea. CT abd/pelvis 04/16/25 showed mild acute sigmoid diverticulitis with probable small intramural abscess measuring 1.5cm. No drainable abscess identified. Gen surg consulted and did not recommend any acute surgical intervention; recommending conservative management. Was treated with IV zosyn while in hospital. ID rec switch to levofloxacin and flagyl for 2-3 weeks with re-imaging in 2 weeks to determine resolution and final duration at time of discharge. Pt tolerated advancing diet. Bowels were loose but diarrhea improved. General surgery will set up with colorectal surgery as outpatient and schedule follow up CT abd/pelvis for within 2 weeks. She was given 3 weeks of antibiotic therapy with instructions for antibiotic use pending follow up with their team and instructions. Total Time Total Time Spent Total Time Spent (In Minutes): 35 Discharge Plan Discharge Items Patient Disposition: Home - Self-Care Reason For Visit: ACUTE SIGMOID DIVERTICULITIS WITH POSSIBLE ABSCESS Discharge Diagnosis: Mild acute sigmoid diverticulitis with probable small intramural abscess measuring 1.5 cm Condition on Discharge: Good Activity: Resume your previous activity Lifting: Gradually increase as tolerated Bathing: No limitations Exercise/Sports: Rest today and Gradually increase as tolerated Driving/Machine Use: No limitations Non-emergency contact: Primary Care Provider and Surgeon Call non-emergency contact if: you have any medication questions, your symptoms worsen, your pain is not controlled and your temperature is above 101.5 Follow-up/Referrals: Elio Bright PA-C [Primary Care Provider] - (Date & Time 04/25/2025 10:00 AM Provider: Elio Bright PA-C [facility], [facility] ) Gini Taylor MD [Surgeon] - (Please call to schedule follow up in the office in 2 weeks ) Diet: Low Fiber Diet Comment: Advance diet as tolerated Addtl Attending Provider Instructions: You were admitted to [facility] due to abdominal pain and diarrhea and diagnosed with Mild acute sigmoid diverticulitis with probable small intramural abscess During your stay here you were treated with supportive care, medications including antibiotics and your symptoms improved. You were evaluated by General surgery and no surgical procedure was recommended Infectious disease evaluated you and were instructed to complete 2-3 weeks of antibiotics as directed below. Imaging studies which were completed include CT abdomen/pelvis on 04/16/25- abnormal showing probable small intramural abscess measuring 1.5cm. You need repeat CT abdomen pelvis imaging in 2 weeks to confirm the abscess is resolving / gone- this will need to be followed up by your PCP. Medications: Continue taking you medications as prescribed Levofloxacin 750 mg once daily Flagyl 500 mg every 8 hours ( three times per day) Appointments: Follow up with PCP within 1 week, an appointment has been requested for you. Follow up with colorectal surgery, an appointment has been requested for you. Pending Studies at Discharge: No Stand-Alone Forms: My [facility], Smoking Cessation Medications and DC Order Prescriptions: New levofloxacin 750 mg tablet 750 mg PO DAILY 21 Days Qty: 21 0RF Continued atorvastatin 10 mg Tablet 10 mg PO QAM alendronate 70 mg Tablet 70 mg PO WK Rx Instructions: Tuesdays sertraline 100 mg Tablet 100 mg PO HS calcium carbonate [Calcium 600] 600 mg calcium (1,500 mg) Tablet 600 mg PO QAM famotidine 20 mg Tablet 20 mg PO HS omeprazole 20 mg Capsule,Delayed Release(Dr/Ec) 20 mg PO QAM lisinopril 40 mg Tablet 40 mg PO QAM cholecalciferol (vitamin D3) [Vitamin D3] 25 mcg (1,000 unit) Capsule 25 mcg PO QAM aspirin [Adult Aspirin Regimen] 81 mg tablet,delayed release (DR/EC) 81 mg PO BID Qty: 84 0RF omega-3 fatty acids 1,000 mg Capsule 1,000 mg PO QAM metoprolol succinate 50 mg tablet extended release 24 hr 50 mg PO QAM trazodone 50 mg tablet 50 mg PO HS Patient Comments: 04/16- per daughter, she thinks pt is just trying this medicine out to see if it helps her sleep. metronidazole 500 mg tablet 500 mg PO TID 21 Days Qty: 63 0RF Discontinued ciprofloxacin HCl 750 mg tablet 750 mg PO BID Discharge Orders: Discharge Order (Routine); Ordered 04/19/25 Ordered By: Jasmina Helton/Other Patient Handouts: Low-Fiber Diet Admission Data Admit Date/Time: 04/16/25 15:02 Attending Provider: Figueroa Eisenberg Admit Provider: Martha Galarza Primary Care Provider: Elio Bright Other Providers: Jaime Santiago; Martha Galarza; Henry Sexton; Briana Reagan; Chevy Caballero I.; Jovi Montenegro II; Tomasa Morgan; Jose Sanchez; Rinku Diaz; Moisés Nevarez Other Interventions: Discharge Summary Assessment (RN) Last Done: 04/19/25 10:42 Supervising Physician Co-Signing Physician Notes Patient seen and examined independently. Discussed with above provider. Patient reports improvement in the abdominal pain. She is tolerating diet well. Reports stool forming up, no abd tender on exam. No significant events overnight. pt advised to f/u pcp and gen sx on dc. pt educated about importance reimaging belly in 2 weeks to make sure abscess is improving and its usefulness in determining further antibiotic/care. She voiced understanding. I have reviewed the advanced practitioner's documentation, and I agree with, and take responsibility for the plan of care I spent a total of 30 minutes coordinating, documenting, and providing care for this patient excluding time spent in the performance of separately billed services. All of the aforementioned completed while collaborating with the assigned advanced practitioner for a full treatment plan
== END 2025-04-19 11:05 | disposition home or self-care (01) | DRG 391 ==
LOC: ED 09:50 → 3E 15:02 → SUATTDRO 15:02 → 3E 17:19